=== PATIENT | male | born 1960 | race Caucasian/White ===

== ENCOUNTER → 2023-07-25 14:33 | Outpatient (REF) | payer MEDICARE, BC, SELFPAY ==
[2023-07-25 15:55] LABS: % Eosinophils 4.1 % (0-6); % Immature Granulocytes 0.2 % (0-0.5); % Lymphocytes 29.2 % (20.5-51.1); % Monocytes 8.8 % (1.7-9.3); % Neutrophils 56.7 % (42.2-75.2); Absolute Basophils 0.1 10^3/uL (0-0.2); Absolute Eosinophils 0.2 10^3/uL (0-0.7); Absolute Lymphocytes 1.4 10^3/uL (1.2-3.4); Absolute Monocytes 0.4 10^3/uL (0.1-0.6); Absolute Neutrophils 2.8 10^3/uL (1.4-6.5); Hematocrit 42.9 % (39.0-52.0); Hemoglobin 14.8 g/dL (13.0-18.0); Mean Corp Hgb Conc. 34.5 g/dL (33.0-37.0); Mean Corpuscular Hgb 33.1 pg (27.0-31.0); Mean Platelet Volume 9.9 fL (7.4-10.4); Nucleated Red Blood Cells % 0 % (-); Platelet Count 190 10^3/uL (130-400); Red Blood Cell Count 4.47 10^6/uL (4.70-6.10); Red Cell Dist. Width 12.1 % (11.5-14.5); White Blood Cell Count 4.9 10^3/uL (4.8-10.8)
[2023-07-25 16:13] LABS: Albumin 4.4 g/dl (3.5-5.0); Blood Urea Nitrogen 19 mg/dl (9-20); Calcium 9.6 mg/dl (8.4-10.2); Carbon Dioxide 25 mmol/L (22-30); Chloride 102 mmol/L (98-107); Glucose 194 mg/dl (70-99); Potassium 4.5 mmol/L (3.5-5.1); Sodium 137 mmol/L (135-145); eGFR > 60.00
== END ==
LOC: REG 14:33
PROVIDERS: ATTENDING PHYSICIAN Internal Medicine Cardiovascular Disease; FAMILY PHYSICIAN Family Medicine
DX: R07.89 Other chest pain (principal); Z95.5 Presence of coronary angioplasty implant and graft
CPT/HCPCS: 36415; 80069; 85025

== ENCOUNTER 2023-07-26 09:20 | Day surgery (SDC) | payer MEDICARE, BC, SELFPAY ==
[2023-07-26] VITALS (17 sets, daily range): BP systolic 123–145; BP diastolic 60–75; BMI 29.5
[2023-07-26 10:15] LABS: Glucose - Point of Care 181 mg/dl (70-99)
--- NOTE | 2023-07-26 11:41 | ITS.CL.CATH ---
Bi Tester - Catheterization
Cardiac Catheterization
Procedure Report:
CARDIAC CATHETERIZATION REPORT
Date of Procedure: 07/26/2023
Referring: Chad Jose M.D.
INDICATION: Known coronary artery disease, accelerating angina.
PROCEDURE:
1. Left heart catheterization.
2. Coronary angiography.
ACCESS:
6 [place] right radial artery.
CATHETERS:
1. 5 [place].
HEMODYNAMIC DATA
Weight (kg): 93.3
AO (s/d/x, mmHg): 126/69/89
LV (s/x mmHg): 133/20
LEFT VENTRICULOGRAPHY: Not performed.
CORONARY ANGIOGRAPHY
Dominance: Right.
Left Main: Normal size, bifurcating vessel. There is a 70% lesion in the ostium of the vessel with catheter dampening on insertion.
LAD: Normal size vessel giving rise to several small diagonals. Patent stents are visible in the proximal and mid vessel. There is a 90% lesion in the proximal LAD, immediately proximal to the stent. There is an 80% lesion in the apical
segment of the LAD.
Ramus: Congenitally absent.
Circumflex: Large size, nondominant vessel giving rise to 3 obtuse marginals before terminating as a substantial left posterolateral branch. There is an 80% lesion in the proximal margin of OM1. There is a 70% lesion in the proximal margin of
the LPL.
RCA: Normal size, dominant vessel that was somewhat difficult to engage with a [place] catheter. There is a 90% lesion in the mid vessel. There is a 90% lesion in the distal RCA, proximal to the takeoff of the RPDA.
INTERVENTION(S)
None.
Closure Device: Vascular band.
Radiation (mGy): 295.72
DAP (cm2.Gy): 43.1
Fluoroscopy time (minutes): 2.5
Sedation time (minutes): 16
CONCLUSIONS
1. Right dominant circulation with a 70% ostial left main coronary artery lesion, a 90% lesion in the proximal LAD, patent stents in the proximal and mid LAD, and 80% lesion in the proximal margin of OM1, a 70% lesion in the proximal margin of the
left posterolateral branch, and 90% lesions in the mid RCA and distal RCA, proximal to the takeoff of the RPDA.
2. Moderately elevated filling pressures (LVEDP = 20 mmHg at 93.3 kg).
3. Vru-zcewoim-gfaetckbc diabetes mellitus.
RECOMMENDATIONS:
1. Expectant management after cardiac catheterization via right radial approach.
2. Limited weight bearing on the right wrist for one week.
3. Discussion with surgery regarding expedited surgical revascularization given his diabetes, relatively young age and multivessel coronary artery disease.
4. Start metoprolol succinate 25 mg daily.
5. Start ezetimibe 10 mg daily.
6. Echocardiogram ordered and pending.
7. Nitroglycerin as needed.
Copy to: Chad Jose M.D.
Scar Boo DO, FACC, FACP
[2023-07-26] MEDS: NSS 1000 IV (11:56)
[2023-07-26] MEDS: TYLENOL 650 MG PO (12:58)
--- NOTE | 2023-07-26 15:05 | PTCARENOTE ---
Pt having ECHO done prior to d/c . blood work also drawn and sent to lab. Once pt d/ec he will then go for his carotid ultrasound. Family at bedside. all discharge instructions explained and understood.
[2023-07-26 15:13] LABS: INR 0.99; PT 12.9 Sec (11.4-14.6)
[2023-07-26 15:14] LABS: APTT 32.2 Sec (23.4-35.0)
[2023-07-27 09:41] LABS: Glycohemoglobin (HgbA1c) 9.5 % (4.0-5.6)
== END 2023-07-26 16:09 | disposition home or self-care (01) ==
LOC: CATH 09:20
PROVIDERS: Nurse Practitioner; ATTENDING PHYSICIAN Internal Medicine Cardiovascular Disease; FAMILY PHYSICIAN Family Medicine; OTHER PHYSICIAN Internal Medicine Cardiovascular Disease
DX: I25.119 Atherosclerotic heart disease of native coronary artery with unspecified angina pectoris (principal); Z95.5 Presence of coronary angioplasty implant and graft; E78.00 Pure hypercholesterolemia, unspecified; E11.42 Type 2 diabetes mellitus with diabetic polyneuropathy; Z79.82 Long term (current) use of aspirin; Z79.84 Long term (current) use of oral hypoglycemic drugs
CPT/HCPCS: 82962; 83036; 85610; 85730; 93306; 93458; 93880; C1894; Q9967

== ENCOUNTER 2023-08-01 10:52 | Inpatient (IN) | payer MEDICARE, BC, SELFPAY ==
[2023-08-01 07:31] VITALS: BMI 30.2
[2023-08-01 08:35] LABS: % Basophils 0.7 % (0-2); % Eosinophils 2.8 % (0-6); % Immature Granulocytes 0.3 % (0-0.5); % Lymphocytes 32.2 % (20.5-51.1); Absolute Basophils 0.1 10^3/uL (0-0.2); Absolute Eosinophils 0.2 10^3/uL (0-0.7); Absolute Lymphocytes 2.3 10^3/uL (1.2-3.4); Absolute Monocytes 0.4 10^3/uL (0.1-0.6); Absolute Neutrophils 4.2 10^3/uL (1.4-6.5); Hematocrit 43.8 % (39.0-52.0); Hemoglobin 14.9 g/dL (13.0-18.0); Mean Corpuscular Volume 94.2 fL (80.0-94.0); Mean Platelet Volume 9.9 fL (7.4-10.4); Nucleated Red Blood Cells % 0 % (-); Platelet Count 216 10^3/uL (130-400); Red Blood Cell Count 4.65 10^6/uL (4.70-6.10); White Blood Cell Count 7.2 10^3/uL (4.8-10.8)
[2023-08-01 08:46] LABS: APTT 26.3 Sec (23.4-35.0); INR 0.95; PT 12.7 Sec (11.4-14.6)
[2023-08-01 08:52] LABS: ALT (SGPT) 66 U/L (0-50); AST (SGOT) 49 U/L (17-59); Albumin 4.3 g/dl (3.5-5.0); Alkaline Phosphatase 65 U/L (38-126); Blood Urea Nitrogen 21 mg/dl (9-20); Calcium 9.5 mg/dl (8.4-10.2); Carbon Dioxide 27 mmol/L (22-30); Chloride 104 mmol/L (98-107); Direct Bilirubin 0.2 mg/dl (0.0-0.4); Estimated Creatinine Clearance 92 ml/min; Glucose 150 mg/dl (70-99); Potassium 4.6 mmol/L (3.5-5.1); Sodium 139 mmol/L (135-145); Total Bilirubin 0.7 mg/dl (0.2-1.3); Total Protein 6.7 g/dl (6.3-8.2); eGFR > 60.00
[2023-08-01 09:17] LABS: Urine Albumin Negative (Neg - Trace); Urine Bilirubin Negative (Negative); Urine Character Clear (Clear); Urine Color Yellow; Urine Glucose Negative (Negative); Urine Ketone Negative (Negative); Urine Leukocyte Negative (Negative); Urine Nitrite Negative (Negative); Urine Occult Blood Negative (Negative); Urine Urobilinogen Negative (Neg - 1+)
--- NOTE | 2023-08-01 10:59 | W.PN.UPDATE ---
Update Note
Progress Note Update
No significant changes to H&P from office visit. Patient was admitted from [facility] due to increasing severity of chest pain. Spoke with cardiology and will admit earlier and possibly expedite surgical date.
--- NOTE | 2023-08-01 11:16 | CM ---
spoke with pt in PAT's, we discssed preop CABG teaching including sternal and driving restrctions. kahlil smallwood, lives with his in a 2 story home with no steps to enter. he denies any dc planning needs or dme's. he has the cardiac educ book.
pt tells me that he had very bad chest pain last night , sub sternal and radiated down both arms, he stated the worst chest pain he had, his wanted him to go to [facility] but he did not want to. pt has SL-NTG i his pocket but said he has never
uses it before and did not use any last night.
texted Niki Licea, CT-HEATING EQUIPMENT INSTALLER and Mary Blackwood, HEATING EQUIPMENT INSTALLER cardiol. Dr Cherry in to see pt and told pt he wants him admitted now. Dr Parr was aware and i was informed that pts GABG will be moved up to tomorrow AM. pts called and informed. pt admitted
to IVU as DA.
[2023-08-01 11:22] VITALS: BMI 29.6
--- NOTE | 2023-08-01 11:36 | CON.CAR ---
Consultation
Consultation Request
Date/Time Consultation Requested: August 01, 2023 10 AM
Date/Time Consultation Performed: August 01, 2023 10 AM
Requesting Provider: Cardiac surgery
Performing Provider: Chapincito Cherry
Reason for Consultation: Coronary artery disease and chest pain
Medical History
-
Chief Complaint: chest pain
History of Present Illness:
63-year-old male with history of CAD status post LAD stenting in 2017, uncontrolled type 2 diabetes, neuropathy, C5-C6 cervical discectomy and fusion who had a recent heart catheterization with results listed below. He was seen in preop testing for
coronary artery bypass grafting surgery and he was describing increased frequency of symptoms with increased duration as well. He has been limiting his activity because of this. Additionally, he has developed what sounds like a cough in the last
week or so. All of this is concerning that he has having more unstable coronary artery disease. We discussed admission for potential surgery tomorrow. CT surgery will be seeing him and plan for tentatively for possible surgery tomorrow. He has
an intolerance to statin and it appears has tried 3 of them. Otherwise, he has no other symptoms of heart failure or arrhythmia.
CONCLUSIONS
1. Right dominant circulation with a 70% ostial left main coronary artery lesion, a 90% lesion in the proximal LAD, patent stents in the proximal and mid LAD, and 80% lesion in the proximal margin of OM1, a 70% lesion in the proximal margin of the
left posterolateral branch, and 90% lesions in the mid RCA and distal RCA, proximal to the takeoff of the RPDA.
2. Moderately elevated filling pressures (LVEDP = 20 mmHg at 93.3 kg).
3. Ifo-ipmnjjw-imxeqibvw diabetes mellitus.
Past Medical History
Past Medical History: Other (CAD status post LAD stenting in 2017, uncontrolled type 2 diabetes, neuropathy, C5-C6 cervical discectomy and fusion)
Past Surgical History: Other (C5-C6 cervical discectomy and fusion)
Social History
Tobacco: Non-Smoker
Alcohol: None
Drug: None
Personal:
Living: With Family
Family History
Family History: Reviewed & Not Pertinent
Allergies / Home Medications
Allergy/AdvReac Type Severity Reaction Status Date / Time
No Known Allergies Allergy Unverified 07/30/23 12:02
�Medication �Instructions �Recorded �Confirmed �Type
aspirin 81 mg tablet,delayed 81 mg PO DAILY 05/12/16 07/30/23 History
release
multivitamin 1 tab PO DAILY 07/26/23 07/30/23 History
nitroglycerin 0.4 mg sublingual 0.4 mg sublingual [id number] PRN 07/26/23 07/30/23 Rx
tablet chest pain #25 tabs
metformin 500 mg tablet 1,000 mg PO QPM 07/30/23 07/30/23 History
metoprolol succinate 25 mg 25 mg PO 1400 07/30/23 07/30/23 History
tablet,extended release 24 hr
Review of Systems
-
All other systems: Negative unless noted
Physical Exam
Vital Signs
Temp Resp Pulse Ox
97.9 F 18 95
08/01/23 11:21 08/01/23 11:21 08/01/23 11:21
Lab Results
08/01/23 08:05
Physical Exam
General: Well Developed and Well Nourished
HEENT: Normocephalic
Respiratory: Clear and Non Labored Respirations
Cardiac: Regular Rhythm and Other (soft systolic murmur )
GI: Soft
Musculoskeletal: No Clubbing and No Cyanosis
Skin: Warm and Dry
Neuro: AO x 3
Hematologic/Lymphatic: No Lymphadenopathy
Psych: Calm
Impression / Plan
-
63-year-old male with history of CAD status post LAD stenting in 2017, uncontrolled type 2 diabetes, neuropathy, C5-C6 cervical discectomy and fusion who had a recent heart catheterization showing significant coronary artery disease and is here for
CABG.
CAD
- continue aspirin and metoporlol
- statin intolerant, discuss pcsk9i vs Leqvio as outpt
- tentative plan for CABG tomorrow
Mild to moderate
- continue routine monitoring
DM2
- SGLT2i if able to afford after surgery
- hold metformin
Cath July 2023: CONCLUSIONS
1. Right dominant circulation with a 70% ostial left main coronary artery lesion, a 90% lesion in the proximal LAD, patent stents in the proximal and mid LAD, and 80% lesion in the proximal margin of OM1, a 70% lesion in the proximal margin of the
left posterolateral branch, and 90% lesions in the mid RCA and distal RCA, proximal to the takeoff of the RPDA.
2. Moderately elevated filling pressures (LVEDP = 20 mmHg at 93.3 kg).
3. Oiu-nywjcoz-nqjnkeekw diabetes mellitus.
Echo July 2023: CONCLUSIONS
Normal LV size and function with no regional wall motion abnormalities.
LVEF is 60 to 65% by Gomez's method of discs.
Mild concentric LVH.
Normal diastolic function.
Normal right ventricular size and function.
Mild to moderate aortic stenosis.
Right heart pressures could not be determined.
Compared to prior from June 12, 2019, aortic valve stenosis is now mild to
moderate from mild.
Data Reviewed
-
EKG: Tracing Personally Visualized and interpreted (sr)
Medical Tests (Nuc Med, Echo etc): Report Reviewed by me (echo and cath)
Labs: Labs Reviewed by me
[2023-08-01] MEDS: HEPARIN 25000 UNITS/250 ML IV (11:50)
[2023-08-01 12:02] LABS: Hematocrit 40.3 % (39.0-52.0); Mean Corp Hgb Conc. 34.7 g/dL (33.0-37.0); Mean Corpuscular Hgb 32.6 pg (27.0-31.0); Mean Corpuscular Volume 93.7 fL (80.0-94.0); Mean Platelet Volume 9.8 fL (7.4-10.4); Platelet Count 204 10^3/uL (130-400); Red Cell Dist. Width 11.9 % (11.5-14.5); White Blood Cell Count 7.6 10^3/uL (4.8-10.8)
[2023-08-01 12:03] VITALS: BP 121/72
[2023-08-01 12:04] LABS: APTT 26.4 Sec (23.4-35.0)
[2023-08-01 15:05] LABS: Troponin I < 0.012 ng/ml
[2023-08-01 15:28] VITALS: BP 112/70
--- NOTE | 2023-08-01 15:44 | PTCARENOTE ---
Pt admitted into room 2245. Admission history obtained. Pt placed on Heparin drip at 1000 units/hr. Pt NSR on monitor, RA, lungs clear. See worklist for VS/I and O and assessments.
[2023-08-01 17:13] LABS: Glucose - Point of Care 111 mg/dl (70-99)
[2023-08-01 18:46] LABS: APTT 34.3 Sec (23.4-35.0)
[2023-08-01 19:32] VITALS: BP 119/77
[2023-08-01] MEDS: COLACE 100 MG PO (19:41)
[2023-08-01] MEDS: SENOKOT 8.59999999999999964 MG PO (19:41)
[2023-08-01 21:27] LABS: Glucose - Point of Care 139 mg/dl (70-99)
[2023-08-01 22:18] VITALS: BP 137/68
[2023-08-02 01:19] LABS: APTT 43.4 Sec (23.4-35.0)
[2023-08-02 05:08] VITALS: BP 134/75
[2023-08-02 05:09] VITALS: BP 131/79
[2023-08-02 05:12] VITALS: BMI 28.8
[2023-08-02] MEDS: PROTONIX 40 MG PO (05:45)
[2023-08-02] MEDS: BACTROBAN 2% OINTMENT 1 APPLIC NASAL ×2 (05:46→20:38)
[2023-08-02] MEDS: LOPRESSOR 25 MG PO (05:46)
[2023-08-02] MEDS: MAGNESIUM OXIDE 500 MG PO (05:46)
[2023-08-02 05:54] LABS: Glucose - Point of Care 160 mg/dl (70-99)
--- NOTE | 2023-08-02 05:56 | PTCARENOTE ---
Chlorhexidine bath done last evening after clip done. Chlorhexidine bath and CHG wipes done again at 0500. 0600 meds given. Accucheck done. at bedside. Heparin to be left on going to OR per cardiac PA.
[2023-08-02 07:15] LABS: ACT+ - POC 96 Seconds (82-134)
[2023-08-02 07:17] LABS: B.E. - POC -1.7 mmol/L; Glucose - POC 168 mg/dl (65-99); HCO3 - POC 25 mmol/L (21-29); Hematocrit - POC 41 % PCV (42-52); Hemodilution- POC Yes; Hemoglobin Calculated - POC 13.9; O2 Saturation %Calculated-POC 99.9 5 (92-96); PCO2 - POC 48 mmHg (35-45); PO2 - POC 365 mmHg (80-100); POC Comment PRE; Potassium - POC 4.3 mmol/L (3.6-5.0); Sodium - POC 142 mmol/L (135-145); pH - POC 7.32 (7.35-7.45)
[2023-08-02 08:01] LABS: Urine Albumin Negative (Neg - Trace); Urine Bilirubin Negative (Negative); Urine Character Clear (Clear); Urine Color Yellow; Urine Glucose Negative (Negative); Urine Ketone Negative (Negative); Urine Leukocyte Negative (Negative); Urine Nitrite Negative (Negative); Urine Occult Blood Negative (Negative); Urine Specific Gravity 1.015 (<1.030); Urine Urobilinogen Negative (Neg - 1+)
--- NOTE | 2023-08-02 09:19 | CM ---
pt in OR today, cm to follow.
[2023-08-02 10:09] LABS: ACT+ - POC 615 Seconds (82-134)
--- NOTE | 2023-08-02 10:21 | W.PN.CD ---
Today's Communication / Plan
-
CABG + AVR today.
Impression / Plan
-
Impression/Plan: 63-year-old male with history of CAD status post LAD stenting in 2017, uncontrolled type 2 diabetes, neuropathy, C5-C6 cervical discectomy and fusion who had a recent heart catheterization showing significant coronary artery
disease and is here for CABG.
#CAD
-Chronic, progressive. The patient reported worsening symptoms at [facility] yesterday, prompting admission for expedited CABG.
-CABG today.
-Anticipate routine post operative care.
#Moderate
-Chronic.
-Discussed with Dr. Parr. This will likely be replaced during CABG.
#DM2
-Chronic, stable.
-Start SGLT2i if affordable after surgery.
-Hold metformin.
#HLD/Statin intolerance
-Chronic, stable.
-Total cholesterol = 181, LDL = 101, HDL = 29, Triglycerides = 259.
-PCSK9i/Inclisiran as an outpatient.
-Patient may benefit from icosapent ethyl 2g BID as an outpatient.
-Goal LDL < 55, Triglycerides < 150.
Subjective/Interval History:
Admitted from [facility] yesterday after admitting to unstable, accelerating symptoms.
In surgery today.
DATA:
Cath 07/26/2023:
CONCLUSIONS
1. Right dominant circulation with a 70% ostial left main coronary artery lesion, a 90% lesion in the proximal LAD, patent stents in the proximal and mid LAD, and 80% lesion in the proximal margin of OM1, a 70% lesion in the proximal margin of the
left posterolateral branch, and 90% lesions in the mid RCA and distal RCA, proximal to the takeoff of the RPDA.
2. Moderately elevated filling pressures (LVEDP = 20 mmHg at 93.3 kg).
3. Xtb-hytrntq-uifhweayf diabetes mellitus.
Echo 07/26/2023:
CONCLUSIONS
Normal LV size and function with no regional wall motion abnormalities.
LVEF is 60 to 65% by Gomez's method of discs.
Mild concentric LVH.
Normal diastolic function.
Normal right ventricular size and function.
Mild to moderate aortic stenosis.
Right heart pressures could not be determined.
Compared to prior from June 12, 2019, aortic valve stenosis is now mild to
moderate from mild.
Physical Exam
Vital Signs/Labs
Vital Signs
Temp Pulse Resp BP Pulse Ox
36.9 C 64 16 131/79 95
08/02/23 05:13 08/02/23 05:46 08/02/23 05:13 08/02/23 05:46 08/02/23 05:13
07/31/23 08/01/23 08/02/23
11:59 11:59 11:59
Actual Weight 91 kg 91 kg
08/01/23 11:40
08/01/23 08:05
PT 12.7 Sec (11.4-14.6) 08/01/23 08:05
INR 0.95 08/01/23 08:05
APTT 43.4 Sec (23.4-35.0) H 08/02/23 00:44
LAB Results
08/01/23
14:30
Troponin I < 0.012
Physical Exam
Exam deferred. Dr. Parr is actively operating on the patient.
Data Reviewed
-
Date of Service: August 02, 2023
Medical Decision Making: Reviewed Test Results, Independent Historian Assessment, Test Interpretation and Review of Case with other Provider
EKG: Tracing Personally Visualized and interpreted and Report Reviewed by me
Echo: Tracing Personally Visualized and interpreted and Report Reviewed by me
X-Ray/CT/US/MRI/NUC/PET: Image Personally Visualized and interpreted, Report Reviewed by me and Discussed with Physician
Medical Tests (PFT, Pathology etc): Image Personally Visualized and interpreted, Report Reviewed by me and Discussed with Physician
Labs: Labs Reviewed by me
Old Records: Reviewed
[2023-08-02 10:46] LABS: B.E. - POC 2.7 mmol/L; Glucose - POC 206 mg/dl (65-99); HCO3 - POC 28 mmol/L (21-29); Hematocrit - POC 31 % PCV (42-52); Hemodilution- POC Yes; Hemoglobin Calculated - POC 10.4; Ionized Calcium - POC 1.04 mmol/L (1.12-1.27); O2 Saturation %Calculated-POC 99.9 5 (92-96); PCO2 - POC 45 mmHg (35-45); PO2 - POC 295 mmHg (80-100); POC Comment CPB; Potassium - POC 5.3 mmol/L (3.6-5.0); Sodium - POC 137 mmol/L (135-145)
[2023-08-02 10:53] LABS: ACT+ - POC 806 Seconds (82-134)
[2023-08-02 11:13] LABS: B.E. - POC 1.3 mmol/L; Glucose - POC 183 mg/dl (65-99); HCO3 - POC 25 mmol/L (21-29); Hematocrit - POC 33 % PCV (42-52); Hemodilution- POC Yes; Hemoglobin Calculated - POC 11.3; Ionized Calcium - POC 1.04 mmol/L (1.12-1.27); O2 Saturation %Calculated-POC 99.8 5 (92-96); PCO2 - POC 36 mmHg (35-45); PO2 - POC 215 mmHg (80-100); POC Comment CPB; Potassium - POC 4.1 mmol/L (3.6-5.0); Sodium - POC 140 mmol/L (135-145); pH - POC 7.45 (7.35-7.45)
[2023-08-02 11:20] LABS: ACT+ - POC 685 Seconds (82-134)
[2023-08-02 11:41] LABS: Glucose - POC 134 mg/dl (65-99); HCO3 - POC 25 mmol/L (21-29); Hematocrit - POC 33 % PCV (42-52); Hemodilution- POC Yes; Hemoglobin Calculated - POC 11.3; O2 Saturation %Calculated-POC 99.6 5 (92-96); PCO2 - POC 38 mmHg (35-45); PO2 - POC 176 mmHg (80-100); POC Comment CPB; Potassium - POC 3.7 mmol/L (3.6-5.0); Sodium - POC 142 mmol/L (135-145); pH - POC 7.43 (7.35-7.45)
[2023-08-02 11:45] LABS: ACT+ - POC 596 Seconds (82-134)
[2023-08-02 12:16] LABS: B.E. - POC 1.4 mmol/L; Glucose - POC 115 mg/dl (65-99); HCO3 - POC 26 mmol/L (21-29); Hematocrit - POC 35 % PCV (42-52); Hemodilution- POC Yes; Ionized Calcium - POC 1.06 mmol/L (1.12-1.27); PCO2 - POC 41 mmHg (35-45); PO2 - POC 361 mmHg (80-100); POC Comment CPB; Potassium - POC 3.9 mmol/L (3.6-5.0); Sodium - POC 141 mmol/L (135-145); pH - POC 7.41 (7.35-7.45)
[2023-08-02 12:23] LABS: ACT+ - POC 691 Seconds (82-134)
[2023-08-02 12:53] LABS: B.E. - POC -0.3 mmol/L; Glucose - POC 156 mg/dl (65-99); HCO3 - POC 24 mmol/L (21-29); Hematocrit - POC 35 % PCV (42-52); Hemodilution- POC Yes; Hemoglobin Calculated - POC 11.8; Ionized Calcium - POC 1.03 mmol/L (1.12-1.27); O2 Saturation %Calculated-POC 99.9 5 (92-96); PCO2 - POC 39 mmHg (35-45); PO2 - POC 281 mmHg (80-100); POC Comment CPB; Potassium - POC 3.9 mmol/L (3.6-5.0); Sodium - POC 141 mmol/L (135-145); pH - POC 7.41 (7.35-7.45)
[2023-08-02 12:55] LABS: ACT+ - POC 631 Seconds (82-134)
[2023-08-02 13:23] LABS: ACT+ - POC 595 Seconds (82-134)
[2023-08-02 13:24] LABS: B.E. - POC -0.7 mmol/L; Glucose - POC 178 mg/dl (65-99); HCO3 - POC 25 mmol/L (21-29); Hematocrit - POC 34 % PCV (42-52); Hemodilution- POC Yes; Hemoglobin Calculated - POC 11.5; Ionized Calcium - POC 1.08 mmol/L (1.12-1.27); PCO2 - POC 46 mmHg (35-45); PO2 - POC 141 mmHg (80-100); POC Comment REWARM; Potassium - POC 3.4 mmol/L (3.6-5.0); Sodium - POC 142 mmol/L (135-145); pH - POC 7.35 (7.35-7.45)
[2023-08-02 14:09] LABS: ACT+ - POC 107 Seconds (82-134)
[2023-08-02 14:13] LABS: B.E. - POC -2.3 mmol/L; Glucose - POC 118 mg/dl (65-99); HCO3 - POC 24 mmol/L (21-29); Hematocrit - POC 30 % PCV (42-52); Hemodilution- POC Yes; Hemoglobin Calculated - POC 10.2; Ionized Calcium - POC 1.25 mmol/L (1.12-1.27); O2 Saturation %Calculated-POC 99.9 5 (92-96); PCO2 - POC 45 mmHg (35-45); PO2 - POC 297 mmHg (80-100); POC Comment POST; Potassium - POC 3.6 mmol/L (3.6-5.0); Sodium - POC 144 mmol/L (135-145); pH - POC 7.33 (7.35-7.45)
--- NOTE | 2023-08-02 14:29 | W.CVOR.SURPR ---
CVOR Surgeon Immed Pre Op
-
I have examined this patient prior to performance of the scheduled procedure.
The patient's condition is unchanged from the time of the dictated/written History and
Physical and the patient is able to undergo the scheduled procedure.
--- NOTE | 2023-08-02 14:29 | W.IMMPOSTOP ---
Addendum entered and electronically signed by Naveen Parr MD 08/02/23 15:58:
[id number]
Original Note:
Surgical Immed Post Op Note
-
CARDIAC SURGERY OPERATIVE NOTE:
Preoperative Dx:
Unstable angina w/ MVCAD
Moderate aortic stenosis
Mild aortic insufficiency
Postoperative Dx:
Same
Procedures:
1) Median sternotomy
2) Takedown of KELLEN (narrow pedicle)
3) Endoscopic harvest/prep of L RA
4) Endoscopic harvest/prep of RLE GSV
5) CABG x 4 (KELLEN to LAD, L RA to OM1, GSV to RPDA, GSV to LPLB)
6) AVR (#25 Inspiris RESILIA)
Surgeon:
Naveen Parr M.D.
Assistants:
Miguel Mcelroy P.A.-C.; endoscopic harvest/prep of RLE GSV; executive chef assistant throughout; closure
Marjorie Taylor P.A.-C.; endoscopic harvest/prep of L RA; closure
Anesthesia:
Ankit Napoles M.D. and Oksana PalenciaN.Ethan
Perfusion:
Margot Bennett C.C.P. and Jayla Auguste C.C.P.; XC: 177, CPB: 204
Findings:
KELLEN was healthy conduit w/ brisk blood flow; ELD 2.5mm
L RA was healthy conduit w/ ELD 2.5mm
GSV was healthy conduit w/ ELD 3.5mm
LAD was visible on the epicardial surface, scattered calcifications/palpable prior stents; ELD 2.75mm
OM1 was visible on the epicardial surface, slightly thin walled, ELD 1.75mm
RPDA was visible on the epicardial surface, normal jesus, ELD 2.50mm
LPLB was visible on epicardial surface, normal jesus, ELD 2.50mm
RA-to-OM1 and GSV-to-LPLB directly anastomosed to aorta
GSV-to-RPDA w/ [id number]-[id number] anastomosis to graft to LPLB
Trileaflet AV w/ asymmetric leaflets. There were moderate calcifications on the RCC and LCC. The NCC had scant calcifications, but was the smallest of the valve leaflets. There was only minor annular extension of the calcium.
#25 Inspiris Resilia valve placed w/ 16 interrupted, pledgetted valve sutures & CorKnot device
Very good flow in all grafts on intraoperative transit-time U/S assessment
Post-WILL: Normal LVEF w/o RWMA, well-seated AVR w/o PVL/AI, mean gradient 9mmHg
Implants:
[employer] Inspiris RESILIA AVR #25mm; SN [id number]
Epicardial V-wires x 2
CT x 4 (B/L pleural, inferior mediastinal, superior mediastinal)
Sternal wires x 9
Complications:
None
Condition:
76 sinus, 96/57, 39/27, CVP 20, CO/CI: 4.4/2.1, 99%
GTTS: levophed 2, nicardipine 2.5, precedex 0.6
Stable/guarded to CVICU
--- NOTE | 2023-08-02 14:39 | PN.DE.MGMTRT ---
Insulin Management
- -
08/02/2023 Diabetes Management Consult
Patient admitted 07/31 increasing chest pain in OR today for CABG. PMH CAD, neuropathy, type 2 diabetes. A1C on 07/25 9.5%, cr .9, eGFR >60.
Patient is in OR at this time. Will follow glycemic protocol insulin infusion post op x 2 days.
Recommend transition to 1000 mg metformin BID with Jardiance or Farxiga.
Diabetes History
- -
Type of Diabetes: 2
Pre-Admission Diabetes Regimen
Insulin Pump Settings
IP Diabetes Regimen
08/01/23 08/01/23 08/02/23
17:11 21:26 05:53
POC Glucose 111 H 139 H 160 H
Meal type: Dinner
Amount consumed: 100%
Patient Education
--- NOTE | 2023-08-02 15:01 | W.PN.UPDATE ---
Update Note
Progress Note Update
63-year-old male developed chest discomfort during preadmission testing and was directly admitted to the hospital and surgery expedited for 08/02/2023.
IV fluids: 1100
Crystalloid:�
U.O.:� 450
Blood:� none
Wires:�
Drips: Cardene @ 2.5
Pressors: Levophed @ 2
Sedatives:� Precedex @ 0.6
�
NEURO: sedated on Precedex, pupils +2mm B/L
RESP: #8OT @23cm> 550/60%/01/22. Lungs clear B/L. 2 mediastinal (30cc on arrival) and R/L pleural (20cc on arrival) chest tubes to -20cm suction. Sanguineous drainage
CV: RRR +S1, S2, no S3, no�rub, no murmur. Dermabond to median sternotomy. RIJ w/[place] locked @ 45cm. PA XX; CVP XX; C.O 4.2/CI 2.1
ABD: round, soft, no BS
EXT: no edema, +2/4 DP pulses B/L, no femoral bruit, XXLE NAVNEET wrap intact; XX radial A-line intact
: Sheldon with clear yellow urine
�
A/P: POD #0 s/p AVR #25 Inspiris RESILIA; CABG x 4 (KELLEN to LAD, L RA to OM1, GSV to LPLB, GSV to RPDA-Y graft from SVG to LPLB)
WILL: EF�70%
- wean and extubate
- will need instruction regarding antibiotic prophylaxis for dental and invasive procedures
# CAD
- will need ASA/Plavix, beta-austin
- intolerant to statin>Zetia 10mg daily
- Ca+ austin for radial patency
�
# acute surgical blood loss anemia-expected
- trend CBC
�
# T2DM (A1C 9.5)
- insulin infusion x 48h
- diabetes management consult
- on MFM 1000mg daily @ home
�
[2023-08-02 15:08] LABS: Glucose - Point of Care 131 mg/dl (70-99)
--- NOTE | 2023-08-02 15:09 | CON.INTV ---
Consultation
Consultation Request
Date/Time Consultation Requested: 08/02/2023
Date/Time Consultation Performed: 08/02/2023
Requesting Provider: Dr. Parr
Performing Provider: Dr. Anand Randle
Reason for Consultation: Status post coronary artery bypass and AVR.
Medical History
-
History of Present Illness:
63-year-old man with past medical history significant for type 2 diabetes with neuropathy, coronary Tory disease, colon polyps who is here after being admitted for coronary artery bypass. Patient has multivessel coronary artery disease with prior
stents. Symptomatic despite medical management. LVEF was normal.
It was also discovered to have severe aortic valve stenosis.
He underwent coronary artery bypass and aortic valve replacement on 08/02/[address] Parr.
Currently in the critical care unit, intubated, sedated.
Records reviewed
Past Medical History
Past Medical History: Other (See assessment and plan section)
Social History
Tobacco: Non-smoker
Alcohol: None
Drug: None
Living: With Family
Employment: Retired
Family History
Family History: Reviewed & Not Pertinent
Allergies / Home Medications
Allergies
Allergy/AdvReac Type Severity Reaction Status Date / Time
No Known Allergies Allergy Verified 08/01/23 12:24
Home Medications
�Medication �Instructions �Recorded �Confirmed �Last Taken �Type
aspirin 81 mg tablet,delayed 81 mg PO DAILY Blood Clot 05/12/16 08/01/23 07/31/23 08:00 History
release Prevention/Tx
multivitamin 1 tab PO DAILY Supplement 07/26/23 08/01/23 07/31/23 08:00 History
nitroglycerin 0.4 mg sublingual 0.4 mg sublingual [id number] PRN 07/26/23 08/01/23 Unknown Rx
tablet chest pain #25 tabs
metformin 500 mg tablet 1,000 mg PO QPM Diabetes 07/30/23 08/01/23 07/31/23 20:00 History
metoprolol succinate 25 mg 25 mg PO 1400 CAD 07/30/23 08/01/23 07/31/23 12:00 History
tablet,extended release 24 hr
Review of Systems
-
Unable to Obtain full review of systems at this time due to: Patient Intubation
Vitals / Labs / Diagnostic Testing
Vital Signs
Temp Pulse Resp BP Pulse Ox
98.4 F 83 12 131/79 98
08/02/23 05:13 08/02/23 14:59 08/02/23 14:59 08/02/23 05:46 08/02/23 14:59
Laboratory Results
08/01/23 08/02/23
18:26 00:44
APTT 34.3 43.4 H
Microbiology
08/01/23 08:05 Nose MRSA Screen - Final
No Methicillin Resistant Staphylococcus aureus isolated.
Diagnostic Testing:
Physical Exam
-
HEENT: Normocephalic
Cardiovascular: S1/S2
Respiratory: Clear, Non-Labored Respirations and Other (Chest tube in place: No air leak or excessive drainage.)
GI: Soft and Non Distended
Neurology: Other (Sedated on mechanical ventilation.)
Skin: Warm
General: Comfortable
Assessment
-
Status post coronary bypass and aortic valve replacement 08/02/2023-Dr. Parr.
Postoperative mechanical ventilation
Postoperative anemia
Conditions present prior admission:
Coronary Tory disease status post prior stents
Type 2 diabetes with neuropathy
Assessment and plan:
He is doing well postop-currently on mechanical ventilation and appears comfortable.
ABG reviewed: Adequate oxygenation on ventilation.
Continue SIMV mode with no change
Spontaneous breathing trial per protocol once sedation wears off.
Anemia noted-no evidence of acute bleeding
Follow H&H serially
Hemodynamics -acceptable on low-dose Levophed.
Also on Cardene drip
PA catheter in place will follow hemodynamics and wean down vasoactive drugs as able.
Follow renal function and urinary output.
Chest tube with no excessive drainage-no air leak.
Chest x-ray reviewed: With no pneumothorax or fluid collections.
Remain nothing by mouth
Head of the bed elevation
Glycemic control per protocol
DVT prophylaxis when safe from the surgical perspective.
Critical care statement: A total of 32 minutes of critical care time was provided for this patient today. This includes management of unstable vital signs, evaluation of the patient at bedside, reviewing the patient's pertinent medical records
including ventilator settings, arterial blood gases, radiographs, microbiology, laboratory evaluations and discussion with primary team, critical care nursing, and respiratory therapy.
[2023-08-02 15:15] LABS: B.E. -0.7 mmol/L; HCO3 24.9 mmol/L (21-28); Ionized Calcium 1.24 mMOL/L (1.15-1.33); PCO2 44 mmHg (35-48); PO2 121 mmHg (83-108); Potassium 4.5 mMOL/L (3.5-5.1); Sodium 137 mMOL/L (136-145); pH 7.36 (7.35-7.45)
[2023-08-02 15:16] LABS: Hematocrit 31.8 % (39.0-52.0); Hemoglobin 11.4 g/dL (13.0-18.0); Platelet Count 145 10^3/uL (130-400)
[2023-08-02 15:18] LABS: Mixed Venous O2 Saturation 77.2 %
[2023-08-02 15:26] LABS: PT 16.9 Sec (11.4-14.6)
[2023-08-02 15:27] LABS: APTT 25.9 Sec (23.4-35.0)
[2023-08-02] MEDS: ANCEF 10 IV ×2 (15:27)
[2023-08-02] MEDS: NEURONTIN PO ×2 (15:28→16:13)
[2023-08-02] MEDS: NSS 500 IV (15:28)
[2023-08-02] MEDS: NOVOLOG FLEXPEN SC ×2 (15:28→17:06)
[2023-08-02 15:58] LABS: Glucose - Point of Care 168 mg/dl (70-99)
[2023-08-02 16:10] LABS: Blood Urea Nitrogen 19 mg/dl (9-20); Estimated Creatinine Clearance 76 ml/min; Glucose 165 mg/dl (70-99); Magnesium 3.2 mg/dl (1.6-2.3)
[2023-08-02] MEDS: TYLENOL PO ×2 (16:13→21:48)
[2023-08-02] MEDS: PACERONE PO (16:13)
[2023-08-02] MEDS: SENOKOT PO (16:14)
[2023-08-02] MEDS: COLACE PO (16:14)
--- NOTE | 2023-08-02 16:17 | CM ---
priced meds with [facility]-
jardiance- first month is $513 (this includes his remaining $545 deductible)- when the deductible is paid down his cost is $33/month
Farxiga- first month is $489 (this includes his $545 remaining deductible)- when the deductible is paid down his copay is $33/month
pt could use a free 30 day coupon.
--- NOTE | 2023-08-02 16:24 | PTCARENOTE ---
Rec'd pt from CVOR mechanically ventilated and sedated. Pt with RT IJ swan and RT radial arterial line. Pt on IV precedex at 0.5 mcg/kg/hr, IV Levo at 2mg/hr and IV cardene at 2.5 mg/hr. Labs sent. EKG done and CXR done. Levo weaned to off. Pt
resting comfortably. See worklist for VS/I and O and assessments.
--- NOTE | 2023-08-02 16:43 | PTCARENOTE ---
Pt stimulated awake, PHILLIP to command. Pt placed on CPAP 5 PS 5 .40% at 1635. TV 300-400. Pulse ox 96%. RR 18-20. See worklist for VS/I and O and assessments.
[2023-08-02 17:04] LABS: B.E. -1.9 mmol/L; HCO3 25.4 mmol/L (21-28); O2 Saturation % 96.7 % (94-98); PCO2 54 mmHg (35-48); PO2 78 mmHg (83-108); pH 7.28 (7.35-7.45)
[2023-08-02 17:08] LABS: Glucose - Point of Care 247 mg/dl (70-99)
[2023-08-02] MEDS: OFIRMEV 100 IV (17:27)
--- NOTE | 2023-08-02 17:31 | PTCARENOTE ---
Pt placed back of vent to rest. Pt very sleepy, will attempt CPAP again when patient more awake.
[2023-08-02 18:08] LABS: Glucose - Point of Care 210 mg/dl (70-99)
--- NOTE | 2023-08-02 18:23 | PTCARENOTE ---
Pt bathed with CHG wipes, turned side to side, tolerated well. Pt remains very sleepy, but arousable.
[2023-08-02 18:45] LABS: Glucose - Point of Care 205 mg/dl (70-99)
[2023-08-02 18:52] LABS: Hematocrit 31.6 % (39.0-52.0); Hemoglobin 11.1 g/dL (13.0-18.0); Platelet Count 176 10^3/uL (130-400)
[2023-08-02] MEDS: ALBUMIN 5% 250 IV (19:07)
[2023-08-02] MEDS: CARDENE 200 IV (19:10)
[2023-08-02] MEDS: SENOKOT-S PO (19:14)
--- NOTE | 2023-08-02 19:30 | PTCARENOTE ---
pt received from previous RN, intubated, able to open eyes to voice, PHILLIP, nods appropriately. SR w/ occasional PVCs on the monitor, HR 70-80s. V-wire in place, pacer box off. SBP 80-100s, MAPs >65. Levophed gtt running as ordered. PAP 30s/20s. CVP
~22. CI >2. palpable pulses, no edema. pt mechanically ventilated, ETT #8.0, 23cm@lip. pt placed on CPAP trial @1919, 5/5 40%, tolerating well. lungs clear anteriorly. CTx4, no air leak or crepitus noted. pt abdomen s/n, pt denies n/v. hypoactive
BS. Sheldon in place, clear yellow urine. sternal Aquagel intact. chest tube dressing c/d/i. LUE NAVNEET bandage in place, Cardene gtt running as ordered. R groin puncture intact, RLE NAVNEET bandage in place. RIJ cordis/swan maintained. R radial [place]
flushed, zeroed and calibrated. PIV. insulin gtt running as ordered. see worklist for VS, I&O, and assessment.
[2023-08-02 19:33] VITALS: BP 102/61
[2023-08-02 19:51] LABS: Glucose - Point of Care 189 mg/dl (70-99)
[2023-08-02 19:56] LABS: HCO3 24.3 mmol/L (21-28); Ionized Calcium 1.13 mMOL/L (1.15-1.33); O2 Saturation % 98.9 % (94-98); PCO2 42 mmHg (35-48); PO2 95 mmHg (83-108); Potassium 4.8 mMOL/L (3.5-5.1); pH 7.37 (7.35-7.45)
--- NOTE | 2023-08-02 20:00 | RESPNOTE ---
PT was extuabted at this time, following a weaning trial with cpap +5, PS 5 and an acceptable ABG result. PT was deep suctioned prior to, and orally succtioned afterward for a scant amt of clear secretions. PT was placed on a 6 L nasal cannula
post-extuabtion and vitals were stable. HR-94/ SPO2-98%/RR-14. I/S was done with the PT x 5 times with a best preformed at 1,100 mls. Will continue to monitor resp status.
--- NOTE | 2023-08-02 20:07 | PTCARENOTE ---
ABG sent, PA aware of results. pt extubated @1999 to 6LNC, oriented x4. IS 1000ml.
[2023-08-02 20:12] VITALS: BP 104/65
[2023-08-02] MEDS: ANCEF 5 IV (20:38)
[2023-08-02] MEDS: TORADOL 15 MG IV (20:38)
[2023-08-02] MEDS: CALCIUM CHLORIDE 10% SYRINGE 50 MG IV (20:43)
[2023-08-02] MEDS: CALCIUM CHLORIDE 10% SYRINGE 50 ML IV (20:43)
[2023-08-02] MEDS: LOW STRENGTH ASPIRIN 81 MG PO (20:47)
[2023-08-02 21:06] LABS: Glucose - Point of Care 150 mg/dl (70-99)
[2023-08-02 21:53] VITALS: BP 111/64
[2023-08-02 21:55] LABS: Glucose - Point of Care 137 mg/dl (70-99)
[2023-08-02] MEDS: NEURONTIN 100 MG PO (22:00)
[2023-08-02] MEDS: PACERONE 200 MG PO (22:00)
[2023-08-02] MEDS: ZETIA 10 MG PO (22:00)
[2023-08-02] MEDS: LEVOPHED 250 IV (22:01)
[2023-08-02 23:10] LABS: Glucose - Point of Care 113 mg/dl (70-99)
[2023-08-02] MEDS: ROXICODONE 5 MG PO (23:11)
[2023-08-02 23:59] LABS: Glucose - Point of Care 122 mg/dl (70-99)
[2023-08-03] VITALS (20 sets, daily range): BP systolic 97–123; BP diastolic 53–83; PULSE 76; O2SAT 94; BMI 29.5
--- NOTE | 2023-08-03 | PTCARENOTE ---
pt VSS, no changes in assessment. resting between care. cough and deep breathing encouraged.
[2023-08-03 01:05] LABS: Glucose - Point of Care 117 mg/dl (70-99)
[2023-08-03] MEDS: FLEXERIL 5 MG PO ×3 (01:05→20:24)
[2023-08-03] MEDS: DILAUDID 0.25 MG IV (02:16)
[2023-08-03 03:15] LABS: Glucose - Point of Care 116 mg/dl (70-99)
[2023-08-03 03:31] LABS: Hematocrit 27.2 % (39.0-52.0); Hemoglobin 9.6 g/dL (13.0-18.0); Mean Corp Hgb Conc. 35.3 g/dL (33.0-37.0); Mean Corpuscular Hgb 32.2 pg (27.0-31.0); Mean Corpuscular Volume 91.3 fL (80.0-94.0); Platelet Count 138 10^3/uL (130-400); Red Blood Cell Count 2.98 10^6/uL (4.70-6.10); White Blood Cell Count 11.5 10^3/uL (4.8-10.8)
--- NOTE | 2023-08-03 04:00 | PTCARENOTE ---
pt VSS, no changes in assessment. pt lab work drawn, EKG completed. pt washed w/ CHG wipes, gown and linens changed. Gina appiah'd as ordered, terri c/d/i. ALPA peralta dc'd as ordered. tolerating ice chips, no c/o n/v.
[2023-08-03 04:13] LABS: Blood Urea Nitrogen 23 mg/dl (9-20); Calcium 9.2 mg/dl (8.4-10.2); Carbon Dioxide 26 mmol/L (22-30); Chloride 109 mmol/L (98-107); Estimated Creatinine Clearance 69 ml/min; Glucose 102 mg/dl (70-99); Magnesium 2.4 mg/dl (1.6-2.3); Potassium 4.9 mmol/L (3.5-5.1); Sodium 141 mmol/L (135-145); eGFR > 60.00
[2023-08-03] MEDS: ROXICODONE 5 MG PO ×3 (04:18→21:08)
[2023-08-03 05:08] LABS: Glucose - Point of Care 109 mg/dl (70-99)
--- NOTE | 2023-08-03 05:28 | W.PN.CT ---
Today's Communication / Plan
-
-pod #1
-no issues overnight, got slightly hypotensive and dizzy this am with getting out of bed - improved
-CI 2.98, CO 6.23, SVR 732. Drips: insulin, Cardene 2.5 (for radial graft)
-CT output: 2 meds 110/120, 2 pleur 140/180 in 12/24 hrs
-deline
-continue insulin
-transition off iv Cardene to po Norvasc for radial graft
-d/c Sheldon
-current meds (ASA, Plavix, Lopressor, Norvasc, Amio, Protonix, Zetia). Intolerant of statins
-encourage IS, OOB
Assessment / Plan
-
- Unstable angina w/ MVCAD / Moderate - s/p AVR (#25 Inspiris DWAIN); CABG x 4 (KELLEN to LAD, L RA to OM1, GSV to RPDA, GSV to LPLB) by Dr. Parr on 08/02/23, pod #1
- Post-WILL: Normal LVEF w/o RWMA, well-seated AVR w/o PVL/AI, mean gradient 9mmHg
- Hx CAD with stents x2 in 2017
- HTN/HLD
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
- Nonsmoker
- Statin intolerance
- Acute postop blood loss anemia
- Acute postop atelectasis
- Acute postop hypovolemia with subsequent hypervolemia
Discussed patient care with: Nursing and Care Team
Subjective
Procedure
- s/p AVR (#25 Inspiris RESILIA); CABG x 4 (KELLEN to LAD, L RA to OM1, GSV to RPDA, GSV to LPLB) by Dr. Parr on 08/02/23
-
Date of Service: August 03, 2023
Objective Data
-
Lab Results
08/02/23 18:40
PT 16.9 Sec (11.4-14.6) H 08/02/23 15:03
INR 1.40 08/02/23 15:03
APTT 25.9 Sec (23.4-35.0) 08/02/23 15:03
Vital Signs
Vital Signs
Temp Pulse Resp BP Pulse Ox
98.2 F 77 18 111/64 97
08/03/23 02:00 08/03/23 02:00 08/03/23 02:00 08/02/23 21:53 08/03/23 02:00
CT Intake/Output/Weight
08/02/23 08/02/23 08/03/23
06:59 18:59 06:59
Intake Total 220.0 / 986.4 766.4 / 986.4
Output Total 245 / 865 620 / 865
Balance -25.0 / 121.4 146.4 / 121.4
SaO2: 97
Physical Exam
-
General: Awake and AOx3
Cardiovascular: Regular rate & rhythm, No Murmurs and Rub
Respiratory: Decreased Breath Sounds
Sternum: Stable
Incision: Clean, Dry and Intact
Extremities: Other (trace edema b/l with 1+ DPs b/l)
Data Reviewed
-
Lab Results: Results Reviewed
Medications: Active Meds Reviewed
Chest X-Ray: Report Reviewed and Image Reviewed
ECG: Report Reviewed and Image Reviewed
[2023-08-03] MEDS: TYLENOL 1000 MG PO ×3 (05:37→21:08)
[2023-08-03] MEDS: TORADOL 15 MG IV (05:37)
[2023-08-03] MEDS: ANCEF 5 IV ×2 (05:38→13:47)
--- NOTE | 2023-08-03 06:12 | PTCARENOTE ---
pt OOB to chair x2 assist, PA aware of CT output. CXR completed. chest PT performed. +productive cough.
[2023-08-03 07:06] LABS: Glucose - Point of Care 137 mg/dl (70-99)
[2023-08-03] MEDS: NOVOLOG FLEXPEN 4 UNITS SC ×2 (08:12→17:14)
[2023-08-03 08:13] LABS: Glucose - Point of Care 119 mg/dl (70-99)
[2023-08-03] MEDS: SENOKOT-S 1 TABLET PO ×2 (08:15→20:24)
[2023-08-03] MEDS: LOPRESSOR 12.5 MG PO ×2 (08:15→20:24)
[2023-08-03] MEDS: PACERONE 200 MG PO ×3 (08:15→21:08)
[2023-08-03] MEDS: NEURONTIN 100 MG PO ×3 (08:15→21:08)
[2023-08-03] MEDS: PROTONIX 40 MG PO (08:15)
[2023-08-03] MEDS: MAGNESIUM OXIDE 500 MG PO ×2 (08:15→20:24)
[2023-08-03] MEDS: LOW STRENGTH ASPIRIN 81 MG PO (08:16)
[2023-08-03] MEDS: LIDOCAINE 4% PATCH 1 PATCH TOPICAL (08:16)
[2023-08-03] MEDS: PLAVIX 75 MG PO (08:16)
[2023-08-03] MEDS: BACTROBAN 2% OINTMENT 1 APPLIC NASAL ×2 (08:17→20:24)
[2023-08-03] MEDS: NORVASC 2.5 MG PO (08:31)
--- NOTE | 2023-08-03 09:04 | W.PN.ANS.POP ---
Anesthesia Post Operative
- Anesthesia Post Op Note
Vital Signs Stable-See Nursing Note: Yes
Airway Patent: Yes
Adequate Pain Control: Yes
Change in Mental Status: No
Current Postoperative Nausea & Vomiting: No
Anesthesia Complications: No
General Anesthetic Recall: No
Unplanned Admission: No
Post Op Hydration Adequate: Yes
[2023-08-03 10:27] LABS: Glucose - Point of Care 135 mg/dl (70-99)
--- NOTE | 2023-08-03 10:43 | W.PN.CD ---
Today's Communication / Plan
-
-Supportive care in the postop..
-Pain control
-Start aspirin/Plavix/metoprolol and Norvasc
Impression / Plan
-
Impression/Plan: 63-year-old male with history of CAD status post LAD stenting in 2017, uncontrolled type 2 diabetes, neuropathy, C5-C6 cervical discectomy and fusion who had a recent heart catheterization showing significant coronary artery
disease now status post CABG and AVR -08/02/[address] Parr�postop day #1
#CAD
-CABG x 4 (KELLEN to LAD, L RA to OM1, GSV to RPDA, GSV to LPLB) by Dr. Parr on 08/02/23, pod #1
-Plan to decline.
-Assess chest tubes.
-Beta-blockers and amlodipine with left radial artery harvesting.
-On aspirin and Plavix.
-Postop A-fib prophylaxis with amiodarone.
#Moderate
-s/p AVR (#25 Inspiris RESILIA) -08/02/2023
-Deline
#DM2
-Chronic, stable.
-Start SGLT2i if affordable after surgery.
-Hold metformin.
#HLD/Statin intolerance
-Chronic, stable.
-Total cholesterol = 181, LDL = 101, HDL = 29, Triglycerides = 259.
-PCSK9i/Inclisiran as an outpatient.
-Patient may benefit from icosapent ethyl 2g BID as an outpatient.
-Goal LDL < 55, Triglycerides < 150.
Subjective/Interval History:
Feeling much better today. Had significant pain in the morning that has resolved completely. No active complaints. Out of the bed to chair.
DATA:
Cath 07/26/2023:
CONCLUSIONS
1. Right dominant circulation with a 70% ostial left main coronary artery lesion, a 90% lesion in the proximal LAD, patent stents in the proximal and mid LAD, and 80% lesion in the proximal margin of OM1, a 70% lesion in the proximal margin of the
left posterolateral branch, and 90% lesions in the mid RCA and distal RCA, proximal to the takeoff of the RPDA.
2. Moderately elevated filling pressures (LVEDP = 20 mmHg at 93.3 kg).
3. Doy-naliaoh-evkwvvlhn diabetes mellitus.
Echo 07/26/2023:
CONCLUSIONS
Normal LV size and function with no regional wall motion abnormalities.
LVEF is 60 to 65% by Gomez's method of discs.
Mild concentric LVH.
Normal diastolic function.
Normal right ventricular size and function.
Mild to moderate aortic stenosis.
Right heart pressures could not be determined.
Compared to prior from June 12, 2019, aortic valve stenosis is now mild to
moderate from mild.
Physical Exam
Vital Signs/Labs
Vital Signs
Temp Pulse Resp BP Pulse Ox
98.3 F 81 19 107/63 95
08/03/23 08:00 08/03/23 10:32 08/03/23 10:32 08/03/23 10:32 08/03/23 10:32
08/02/23 08/03/23 08/04/23
06:59 06:59 06:59
Actual Weight 91 kg 93.4 kg
08/03/23 03:14
08/03/23 03:14
PT 16.9 Sec (11.4-14.6) H 08/02/23 15:03
INR 1.40 08/02/23 15:03
APTT 25.9 Sec (23.4-35.0) 08/02/23 15:03
Magnesium 2.4 mg/dl (1.6-2.3) H 08/03/23 03:14
LAB Results
08/01/23
14:30
Troponin I < 0.012
Physical Exam
Constitutional: No acute distress and Comfortable
EENT: Anicteric and Moist mucous membranes
Cardiovascular: Rhythm & rate is regular, Pedal edema is absent and JVD pressure is normal
Respiratory: Respiratory effort normal, Lungs clear to auscul. and Wheeze Absent
GI: Soft, Distention absent, Non tender and Normal bowel sounds
Neuro/Psych: Alert, Oriented and AO x 3
Data Reviewed
-
Date of Service: August 03, 2023
Medical Decision Making: Reviewed Test Results, Independent Historian Assessment and Test Interpretation
EKG: Tracing Personally Visualized and interpreted
Echo: Tracing Personally Visualized and interpreted
X-Ray/CT/US/MRI/NUC/PET: Image Personally Visualized and interpreted
Labs: Labs Reviewed by me
Old Records: Reviewed
Critical Care Time (in minutes): 31
[2023-08-03] MEDS: LASIX 40 MG IV (11:30)
--- NOTE | 2023-08-03 11:59 | PTCARENOTE ---
Addendum entered by Murray Quiñones RN 08/03/23 12:21:
The time of this note was 7am on walking rounds report
Original Note:
Bedside walking rounds report received: patient seen on rounds oob in chair on 3l nasal canula. Titrated to room air: pulse ox sats 93 to 95% and IS encouraged to 1000ml x 10 reps with encouragement. NSR with RBBB and rates in the 70's to 80's.
Epicardial temp v wire to medtronic box to off and then insulated per order. Insulin gtt per protocol. Chest tubes x 4 (2 meds/right/left pleural) to -20cm wall suction: no air leak. See flow record for remaining assessments.
--- NOTE | 2023-08-03 12:00 | PTCARENOTE ---
No acute changes. Remains oob in chair on room air and tolerating well. Patient did stand and void 450ml clear karina yellow urine without difficulty. NSR with RBBB
--- NOTE | 2023-08-03 12:11 | W.PN.INTV ---
Today's Communication / Plan
Recommendations
Continue postoperative care
Increase activity as able
Incentive spirometry
Eventual diuresis
Continue cardiac management
Sign off
Assessment
-
Status post coronary bypass and aortic valve replacement 08/02/2023-Dr. Parr.
Postoperative mechanical ventilation
Postoperative anemia
Conditions present prior admission:
Coronary artery disease status post prior stents
Type 2 diabetes with neuropathy
Assessment and plan:
Postoperative day 1.
Extubated 08/02/2023.
Encourage incentive spirometry
Wean off oxygen
Increase activity per protocol
Analgesia. Pain relatively well-controlled at this point
Anemia noted-no evidence of acute bleeding
Follow H&H serially
Hemodynamics -stable.
Off vasopressors
Normal renal function and adequate urinary output.
PA catheter to be removed
Chest tube with no excessive drainage-no air leak.
Chest x-ray reviewed: With no pneumothorax or fluid collections.
Advance diet as tolerated
Head of the bed elevation
Glycemic control per protocol
DVT prophylaxis when safe from the surgical perspective.
Patient has been transferred to telemetry phase.
Critical care team will sign off.
Subjective Dataa
Subjective Data
Date of Service:
Date of Service: August 03, 2023
Chief Complaint: Passenger Service Representative Follow Up (Status post AVR and coronary artery bypass)
Subjective:
No overnight events
Sitting out of bed
Off vasopressors
Review of Systems
Cardiopulmonary: Dyspnea (none at rest), Cough (n), Wheezing (n) and Chest Pain (n)
GI: Abdominal Pain (n) and Nausea (n)
Neuro: Headache (n)
Objective Data
Data Reviewed
Vital Signs / I&O / Oxygen:
Vital Signs
Temp Pulse Resp BP Pulse Ox
98.5 F 73 24 109/55 95
08/03/23 11:45 08/03/23 11:45 08/03/23 11:45 08/03/23 11:45 08/03/23 11:45
Intake and Output
08/02/23 08/03/23 08/04/23
06:59 06:59 06:59
Intake Total 260 / 260 1152.8 / 1152.8 720.6 / 720.6
Output Total 1140 / 1140 205 / 205
Balance 260 / 260 12.8 / 12.8 515.6 / 515.6
SaO2 [CPAP] 100
SaO2 95
Nasal Cannula flow liters per 3
minute
Physical Exam
General: Respiratory Distress (n) and Comfortable
HEENT: Normocephalic
Cardiovascular: S1-S2
Respiratory: Clear, Non-Labored Respirations and Chest Tube (No excessive drainage or air leak.)
GI: Soft, Non Distended and Normal Bowel Sounds
Neurology: Awake, Alert, Oriented and AO x 3
Skin: Warm
Labs/Micro/Reports
Lab Data
08/03/23 03:14
08/03/23 03:14
Laboratory Results
08/02/23 08/02/23 08/02/23
07:30 15:03 16:55
PT 16.9 H
INR 1.40
APTT Cancelled 25.9
pH 7.36 7.28 L
pCO2 44 54 H
pO2 121 H 78 L
HCO3 24.9 25.4
O2 Delivery Level
08/02/23
19:51
PT
INR
APTT
pH 7.37
pCO2 42
pO2 95
HCO3 24.3
O2 Delivery Level
Microbiology
08/01/23 08:05 Nose MRSA Screen - Final
No Methicillin Resistant Staphylococcus aureus isolated.
[2023-08-03 12:35] LABS: Glucose - Point of Care 86 mg/dl (70-99)
[2023-08-03] MEDS: NOVOLOG FLEXPEN SC (12:44)
[2023-08-03 14:51] LABS: Glucose - Point of Care 151 mg/dl (70-99)
--- NOTE | 2023-08-03 15:00 | PTCARENOTE ---
No acute changes. Vitals stable. Assisted patient back to bed. Right leg/left arm amado wrap dressings removed: all incisions with intact sugical adhesive and ecchymotic around incisional and puncture sites.
[2023-08-03] MEDS: NSS IV (15:36)
[2023-08-03] MEDS: NOVOLIN R INSULIN INFUSION 100 IV (15:36)
--- NOTE | 2023-08-03 16:30 | PTCARENOTE ---
Assisted patient oob to chair. Room air. NSR with RBBB. See flow record MAR for pain management documentation.
[2023-08-03 17:15] LABS: Glucose - Point of Care 162 mg/dl (70-99)
[2023-08-03 19:00] LABS: Glucose - Point of Care 170 mg/dl (70-99)
--- NOTE | 2023-08-03 20:05 | PTCARENOTE ---
Pt received from outgoing RN, oob in a chair, NSR with RBBB, VSS, RA @ 92%, rt Ij cordis, insulin gtt x 48hrs, pain management, urinal, SCD in bed, IS Q1hr when awake.
[2023-08-03] MEDS: ZETIA 10 MG PO (21:08)
[2023-08-03 21:24] LABS: Glucose - Point of Care 110 mg/dl (70-99)
[2023-08-03 23:11] LABS: Glucose - Point of Care 124 mg/dl (70-99)
[2023-08-04] VITALS (19 sets, daily range): BP systolic 100–126; BP diastolic 53–87; BMI 29.8
--- NOTE | 2023-08-04 00:34 | PTCARENOTE ---
Pt reassessment unchanged from previous, vss, 2lnc, pain management, IS, CTx4, Rt IJ cordis, insulin gtt.
[2023-08-04 00:46] LABS: Glucose - Point of Care 94 mg/dl (70-99)
[2023-08-04] MEDS: LOPRESSOR 2.5 MG IV (01:14)
[2023-08-04 02:06] LABS: Glucose - Point of Care 110 mg/dl (70-99)
[2023-08-04 03:12] LABS: Glucose - Point of Care 73 mg/dl (70-99)
[2023-08-04 03:36] LABS: Blood Urea Nitrogen 21 mg/dl (9-20); Calcium 5.9 mg/dl (8.4-10.2); Carbon Dioxide 19 mmol/L (22-30); Chloride 116 mmol/L (98-107); Estimated Creatinine Clearance 109 ml/min; Glucose 60 mg/dl (70-99); Magnesium 1.5 mg/dl (1.6-2.3); Potassium 3.1 mmol/L (3.5-5.1); Sodium 138 mmol/L (135-145); eGFR > 60.00
--- NOTE | 2023-08-04 04:38 | PTCARENOTE ---
pt reassessment unchanged from previous, oob in a chair, increased in productive cough, RA, NSR, VSS, pain management, CT x4, insulin gtt, rt IJ cordis.
[2023-08-04 04:47] LABS: Blood Urea Nitrogen 30 mg/dl (9-20); Calcium 8.7 mg/dl (8.4-10.2); Carbon Dioxide 29 mmol/L (22-30); Chloride 102 mmol/L (98-107); Estimated Creatinine Clearance 69 ml/min; Glucose 86 mg/dl (70-99); Magnesium 2.2 mg/dl (1.6-2.3); Potassium 4.8 mmol/L (3.5-5.1); Sodium 137 mmol/L (135-145); eGFR > 60.00
[2023-08-04 05:44] LABS: Glucose - Point of Care 132 mg/dl (70-99)
[2023-08-04] MEDS: ROXICODONE 5 MG PO ×3 (05:46→21:00)
[2023-08-04] MEDS: TYLENOL 1000 MG PO ×3 (05:46→20:57)
--- NOTE | 2023-08-04 06:11 | W.PN.CT ---
Today's Communication / Plan
-
-pod #2
-atrial tachycardia to 120 noted after coughing fit on 2 separate episodes, breaks spontaneously to NSR
-CT output: 2 meds 40/170, 2 pleur 90/240 in 12/24 hrs
-continue insulin
-increase BB to 25 mg, amlodipine 2.5 mg
-current meds (ASA, Plavix, Lopressor, Norvasc, Amio, Protonix, Zetia). Intolerant of statins
-encourage IS, OOB
Assessment / Plan
-
- Unstable angina w/ MVCAD / Moderate - s/p AVR (#25 Inspiris RESILIA); CABG x 4 (KELLEN to LAD, L RA to OM1, GSV to RPDA, GSV to LPLB) by Dr. Parr on 08/02/23, pod #2
- Post-WILL: Normal LVEF w/o RWMA, well-seated AVR w/o PVL/AI, mean gradient 9mmHg
- Hx CAD with stents x2 in 2017
- HTN/HLD
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
- Nonsmoker
- Statin intolerance
- Acute postop blood loss anemia
- Acute postop atelectasis
- Acute postop hypovolemia with subsequent hypervolemia
Subjective
Procedure
- s/p AVR (#25 Inspiris RESILIA); CABG x 4 (KELLEN to LAD, L RA to OM1, GSV to RPDA, GSV to LPLB) by Dr. Parr on 08/02/23
-
Date of Service: August 04, 2023
Objective Data
-
Lab Results
08/03/23 03:14
08/04/23 03:47
PT 16.9 Sec (11.4-14.6) H 08/02/23 15:03
INR 1.40 08/02/23 15:03
APTT 25.9 Sec (23.4-35.0) 08/02/23 15:03
Vital Signs
Vital Signs
Temp Pulse Resp BP Pulse Ox
98.5 F 76 18 110/62 92
08/04/23 04:00 08/04/23 04:00 08/04/23 04:00 08/04/23 04:00 08/04/23 04:00
CT Intake/Output/Weight
08/03/23 08/03/23 08/04/23
06:59 18:59 06:59
Intake Total 932.8 / 1152.8 1119.6 / 1501.6 382 / 1501.6
Output Total 895 / 1140 1130 / 2110 980 / 2110
Balance 37.8 / 12.8 -10.4 / -608.4 -598 / -608.4
SaO2: 92
Physical Exam
-
General: Awake, Oriented and AOx3
Cardiovascular: Regular rate & rhythm, No Murmurs and No Rub
Respiratory: Clear and Equal
Sternum: Stable
Incision: Clean, Dry and Intact
Extremities: No Edema and No Erythema
Data Reviewed
-
Lab Results: Results Reviewed
Medications: Active Meds Reviewed
Chest X-Ray: Report Reviewed
ECG: Report Reviewed
[2023-08-04 06:38] LABS: Glucose - Point of Care 137 mg/dl (70-99)
--- NOTE | 2023-08-04 07:31 | W.PN.CD ---
Today's Communication / Plan
-
-Out of bed and incentive spirometry
-Beta-blockers metoprolol 25 mg once a day. Amlodipine 2.5 mg once a day.
-Lasix IV x 1.
Impression / Plan
-
Impression/Plan: 63-year-old male with history of CAD status post LAD stenting in 2017, uncontrolled type 2 diabetes, neuropathy, C5-C6 cervical discectomy and fusion who had a recent heart catheterization showing significant coronary artery
disease now status post CABG and AVR -08/02/[address] Parr�postop day #2
#CAD
-CABG x 4 (KELLEN to LAD, L RA to OM1, GSV to RPDA, GSV to LPLB) by Dr. Parr on 08/02/23,
-Plan to decline.
-Assess chest tubes.
-Beta-blockers and amlodipine with left radial artery harvesting.
-On aspirin and Plavix.
-Postop A-fib prophylaxis with amiodarone.
-Start low-dose diuresis for
#Moderate
-s/p AVR (#25 Inspiris RESILIA) -08/02/2023
-Recovering adequately.
#DM2
-Chronic, stable.
-Start SGLT2i if affordable after surgery.
-Hold metformin.
#HLD/Statin intolerance
-Chronic, stable.
-Total cholesterol = 181, LDL = 101, HDL = 29, Triglycerides = 259.
-PCSK9i/Inclisiran as an outpatient.
-Patient may benefit from icosapent ethyl 2g BID as an outpatient.
-Goal LDL < 55, Triglycerides < 150.
Subjective/Interval History:
Feeling better today. No active complaints. Out of the bed to chair.
DATA:
Cath 07/26/2023:
CONCLUSIONS
1. Right dominant circulation with a 70% ostial left main coronary artery lesion, a 90% lesion in the proximal LAD, patent stents in the proximal and mid LAD, and 80% lesion in the proximal margin of OM1, a 70% lesion in the proximal margin of the
left posterolateral branch, and 90% lesions in the mid RCA and distal RCA, proximal to the takeoff of the RPDA.
2. Moderately elevated filling pressures (LVEDP = 20 mmHg at 93.3 kg).
3. Blt-aljgxyy-gjrpgxndw diabetes mellitus.
Echo 07/26/2023:
CONCLUSIONS
Normal LV size and function with no regional wall motion abnormalities.
LVEF is 60 to 65% by Gomez's method of discs.
Mild concentric LVH.
Normal diastolic function.
Normal right ventricular size and function.
Mild to moderate aortic stenosis.
Right heart pressures could not be determined.
Compared to prior from June 12, 2019, aortic valve stenosis is now mild to
moderate from mild.
Physical Exam
Vital Signs/Labs
Vital Signs
Temp Pulse Resp BP Pulse Ox
98.5 F 76 18 110/62 92
08/04/23 04:00 08/04/23 04:00 08/04/23 04:00 08/04/23 04:00 08/04/23 06:12
08/03/23 08/04/23 08/05/23
06:59 06:59 06:59
Actual Weight 93.4 kg 94.1 kg
08/03/23 03:14
08/04/23 03:47
PT 16.9 Sec (11.4-14.6) H 08/02/23 15:03
INR 1.40 08/02/23 15:03
APTT 25.9 Sec (23.4-35.0) 08/02/23 15:03
Magnesium 2.2 mg/dl (1.6-2.3) 08/04/23 03:47
LAB Results
08/01/23
14:30
Troponin I < 0.012
Physical Exam
Constitutional: No acute distress and Comfortable
EENT: Anicteric and Moist mucous membranes
Cardiovascular: Rhythm & rate is regular, Pedal edema is absent and JVD present
Respiratory: Respiratory effort normal and Crackles Present
GI: Soft, Non tender and Normal bowel sounds
Neuro/Psych: Alert, Oriented and AO x 3
Data Reviewed
-
Date of Service: August 04, 2023
Medical Decision Making: Reviewed Test Results, Independent Historian Assessment, Test Interpretation and Review of Case with other Provider
EKG: Tracing Personally Visualized and interpreted
Labs: Labs Reviewed by me
Old Records: Reviewed
Critical Care Time (in minutes): 31
[2023-08-04 08:11] LABS: Glucose - Point of Care 119 mg/dl (70-99)
[2023-08-04] MEDS: LASIX 40 MG IV (08:34)
[2023-08-04] MEDS: MAGNESIUM OXIDE 500 MG PO ×2 (08:40→20:57)
[2023-08-04] MEDS: LIDOCAINE 4% PATCH 1 PATCH TOPICAL (08:40)
[2023-08-04] MEDS: NOVOLOG FLEXPEN 4 UNITS SC (08:40)
[2023-08-04] MEDS: LOW STRENGTH ASPIRIN 81 MG PO (08:41)
[2023-08-04] MEDS: PLAVIX 75 MG PO (08:41)
[2023-08-04] MEDS: NEURONTIN 100 MG PO ×3 (08:41→20:57)
[2023-08-04] MEDS: PROTONIX 40 MG PO (08:41)
[2023-08-04] MEDS: NORVASC 2.5 MG PO (08:42)
[2023-08-04] MEDS: PACERONE 200 MG PO ×3 (08:42→20:57)
[2023-08-04] MEDS: LOPRESSOR 25 MG PO (08:42)
[2023-08-04] MEDS: SENOKOT-S 1 TABLET PO ×2 (08:42→20:57)
[2023-08-04] MEDS: BACTROBAN 2% OINTMENT 1 APPLIC NASAL ×2 (08:43→20:55)
[2023-08-04] MEDS: FLEXERIL 5 MG PO (08:43)
[2023-08-04] MEDS: FARXIGA 10 MG PO (08:43)
[2023-08-04] MEDS: GLUCOPHAGE 1000 MG PO ×2 (08:44→18:06)
--- NOTE | 2023-08-04 09:48 | PTCARENOTE ---
Patient is out of bed in chair, vitals are stable. Flexeril given per order for muscle spasms. PA updated patient on plan of care stating that today team will get him off insulin gtt and remove chest tubes. Pt encouraged to get out of chair and walk
around unit with RN. RN provided patient education on current medications and plan of care.
[2023-08-04 10:04] LABS: Glucose - Point of Care 131 mg/dl (70-99)
--- NOTE | 2023-08-04 11:47 | PTCARENOTE ---
Chest tubes were removed by PA/RN. Patient walked half way around unit with RN, now is back in chair for lunch time. at bedside visiting. Patients vitals remain stable. Dressing applied to chest tube sites- Vaseline and gauze.
[2023-08-04 12:18] LABS: Glucose - Point of Care 109 mg/dl (70-99)
[2023-08-04] MEDS: NOVOLOG FLEXPEN SC (12:30)
[2023-08-04] MEDS: NSS 500 IV (13:15)
[2023-08-04] MEDS: GLUCOPHAGE PO (16:10)
[2023-08-04 16:18] LABS: Glucose - Point of Care 144 mg/dl (70-99)
[2023-08-04] MEDS: NOVOLOG FLEXPEN-LOW RESISTANCE SC (16:18)
--- NOTE | 2023-08-04 16:46 | PTCARENOTE ---
Patient went on another long walk around both CVICU and IVU, vitals remain stable, patient now on insulin pen ACHS and off insulin gtt. Pt came to visit and the patient and were updated on plan of care and provided education on discharge
instructions in the coming days
[2023-08-04] MEDS: LOPRESSOR 37.5 MG PO (20:56)
[2023-08-04] MEDS: ZETIA 10 MG PO (20:57)
--- NOTE | 2023-08-04 23:45 | PTCARENOTE ---
assumed care of pt from previous RN. pt A&Ox4, resting in bed at time of assessment. no c/o pain. SR on tele-monitor. POX 91% on RA. lungs diminished in b/l bases. abd s/n, round. +BS. pt voiding in bathroom. all surgical sites stable. R IJ cordis
w/ KVO. PIV intact. see worklist for complete nursing assessment, interventions, VS, and I&Os.
[2023-08-05] VITALS (13 sets, daily range): BP systolic 102–146; BP diastolic 49–109; PULSE 63; O2SAT 95–99; BMI 29.2
--- NOTE | 2023-08-05 04:30 | PTCARENOTE ---
assessment remains unchanged. VSS. Am labs collected and sent. pt ambulated entire unit. OOB to chair.
[2023-08-05 05:18] LABS: Blood Urea Nitrogen 36 mg/dl (9-20); Calcium 8.8 mg/dl (8.4-10.2); Carbon Dioxide 25 mmol/L (22-30); Chloride 101 mmol/L (98-107); Estimated Creatinine Clearance 69 ml/min; Glucose 131 mg/dl (70-99); Magnesium 2.2 mg/dl (1.6-2.3); Potassium 4.7 mmol/L (3.5-5.1); Sodium 135 mmol/L (135-145); eGFR > 60.00
--- NOTE | 2023-08-05 05:24 | W.PN.CT ---
Today's Communication / Plan
-
-pod #3
-atrial tachycardia to 120 noted after coughing fit on 2 separate episodes yesterday, none since increasing BB to 37.5 mg
-CTs out
-current meds (ASA, Plavix, Lopressor, Norvasc, Amio, Zetia). Intolerant of statins
-Continue metformin, Farxiga, insulin
-scheduled APAP, gabapentin, lidocaine patch
-encourage IS, OOB
Assessment / Plan
-
- Unstable angina w/ MVCAD / Moderate - s/p AVR (#25 Inspiris RESILIA); CABG x 4 (KELLEN to LAD, L RA to OM1, GSV to RPDA, GSV to LPLB) by Dr. Parr on 08/02/23, pod #3
- Post-WILL: Normal LVEF w/o RWMA, well-seated AVR w/o PVL/AI, mean gradient 9mmHg
- Hx CAD with stents x2 in 2017
- HTN/HLD
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
- Nonsmoker
- Statin intolerance
- Acute postop blood loss anemia
- Acute postop atelectasis
- Acute postop hypovolemia with subsequent hypervolemia
Subjective
Procedure
- s/p AVR (#25 Inspiris RESILIA); CABG x 4 (KELLEN to LAD, L RA to OM1, GSV to RPDA, GSV to LPLB) by Dr. Parr on 08/02/23
-
Date of Service: August 05, 2023
Objective Data
-
Lab Results
08/03/23 03:14
08/05/23 04:15
PT 16.9 Sec (11.4-14.6) H 08/02/23 15:03
INR 1.40 08/02/23 15:03
APTT 25.9 Sec (23.4-35.0) 08/02/23 15:03
Vital Signs
Vital Signs
Temp Pulse Resp BP Pulse Ox
98.8 F 71 18 123/64 92
08/05/23 04:00 08/05/23 04:19 08/05/23 04:00 08/05/23 04:19 08/05/23 04:19
CT Intake/Output/Weight
08/04/23 08/04/23 08/05/23
06:59 18:59 06:59
Intake Total 382 / 1501.6 1270 / 1310 40 / 1310
Output Total 980 / 2110 450 / 450
Balance -598 / -608.4 820 / 860 40 / 860
SaO2: 92
Physical Exam
-
General: Awake, Oriented and AOx3
Cardiovascular: Regular rate & rhythm and No Murmurs
Respiratory: Clear and Equal
Sternum: Stable
Incision: Clean, Dry and Dressing Intact
Extremities: No Edema and No Erythema
Data Reviewed
-
Lab Results: Results Reviewed
Medications: Active Meds Reviewed
Chest X-Ray: Report Reviewed
ECG: Report Reviewed
[2023-08-05] MEDS: TYLENOL 1000 MG PO ×2 (06:45→22:24)
--- NOTE | 2023-08-05 07:00 | PTCARENOTE ---
Bedside walking rounds report received. Patient seen on rounds oob in chair on room air. NSR with RBBB. IS to [id number]. Patient assisted back to bed. Right IJ cordis sutures/right IJ cordis catheter dc per order. See flowrecord for remaining
assessments
[2023-08-05] MEDS: NOVOLOG FLEXPEN-LOW RESISTANCE 1 UNITS SC ×3 (07:58→17:53)
[2023-08-05] MEDS: BACTROBAN 2% OINTMENT 1 APPLIC NASAL ×2 (07:59→19:54)
[2023-08-05 08:05] LABS: Glucose - Point of Care 176 mg/dl (70-99)
--- NOTE | 2023-08-05 08:50 | PN.DE.MGMTRT ---
Insulin Management
- -
08/05/2023: Diabetes Management F/U:
63 year old male with PMH that includes: CAD, Neuropathy, T2DM. Admitted on 07/31 with increasing chest pain due to Unstable angina, noted for MVCAD/Moderate . Now POD # 3 s/p AVR and CABG x 4. A1C on 07/25 9.5%, Cr 0.9, eGFR >60. Was taking
Metformin 1000 mg BID prior to admission.
States he was dx with T2DM with an A1C of 13% 7 yrs ago. He had been taking Metformin 1000 mg BID at the time but was stopped by his PCP when his A1C came down to 6.5% and he had lost 70lbs. Says he thought he was doing well until recently when he
had routine blood work that showed that his A1C was back up to 10.5% and he was started on Metformin again.
Pt is wake, alert, oriented, sitting up in chair, granddaughter- Luly at bedside, both able to discuss diabetes management.
Pt was transitioned off glycemic protocol insulin infusion yesterday to oral regimen. Pt states that he has not had much to eat due to poor appetite.
Glucose has been stable and in range, premeal 109 to 144 yesterday, Fasting 131 this AM.
Will make no changes to current regimen: Metformin 1000 mg BID and Farxiga 10mg daily.
Discussed current A1C, average blood sugars and diabetes management with insulin, pt states he would like to hold off on insulin and try oral meds prior to adding insulin. Pt was made aware that he may need at least long acting insulin if his blood
sugars start trending up when he is eating more with improved diet.
Pt reports that he has 2 working meters (OneTouch and Contour) with enough supplies at home
Will consult Dietitian for dietary counseling.
Diabetes History
- -
Type of Diabetes: 2
Pre-Admission Diabetes Regimen
08/05/23
04:15
Creatinine 1.1
Insulin Pump Settings
IP Diabetes Regimen
08/04/23 08/04/2308/03/24
10:02 12:17 16:17
Glucose
POC Glucose 131 H 109 H 144 H
08/05/23 08/05/23
04:15 07:56
Glucose 131 H
POC Glucose 176 H
Patient Education
[2023-08-05] MEDS: LOW STRENGTH ASPIRIN 81 MG PO (08:57)
[2023-08-05] MEDS: NEURONTIN 100 MG PO ×3 (08:57→22:24)
[2023-08-05] MEDS: PROTONIX 40 MG PO (08:57)
[2023-08-05] MEDS: LOPRESSOR 37.5 MG PO ×2 (08:58→19:53)
[2023-08-05] MEDS: GLUCOPHAGE 1000 MG PO ×2 (08:58→17:55)
[2023-08-05] MEDS: PACERONE 200 MG PO ×3 (08:59→22:25)
[2023-08-05] MEDS: NORVASC 2.5 MG PO (08:59)
[2023-08-05] MEDS: LIDOCAINE 4% PATCH 1 PATCH TOPICAL (08:59)
[2023-08-05] MEDS: MAGNESIUM OXIDE 500 MG PO ×2 (08:59→19:54)
[2023-08-05] MEDS: FARXIGA 10 MG PO (08:59)
[2023-08-05] MEDS: SENOKOT-S 1 TABLET PO ×2 (08:59→19:54)
[2023-08-05 09:11] LABS: INR 1.15; PT 14.6 Sec (11.4-14.6)
[2023-08-05] MEDS: PLAVIX 75 MG PO (09:23)
--- NOTE | 2023-08-05 12:00 | PTCARENOTE ---
No acute changes. Ambulated entire loop IVU/CVICU 450ft on room air. NSR with RBBB
[2023-08-05 12:50] LABS: Glucose - Point of Care 158 mg/dl (70-99)
--- NOTE | 2023-08-05 13:59 | W.PN.CD ---
Today's Communication / Plan
-
stable postop
ambulating
in sinus
continue post op care per CT surgery
Impression / Plan
-
Impression/Plan: 63-year-old male with history of CAD status post LAD stenting in 2017, uncontrolled type 2 diabetes, neuropathy, C5-C6 cervical discectomy and fusion who had a recent heart catheterization showing significant coronary artery
disease now status post CABG and AVR -08/02/[address] Parr�postop day #2
#CAD
-CABG x 4 (KELLEN to LAD, L RA to OM1, GSV to RPDA, GSV to LPLB) by Dr. Parr on 08/02/23,
- stable and in sinus . ambulating
- post op care per CT surgery
#Moderate
-s/p AVR (#25 Inspiris RESILIA) -08/02/2023
#DM2
-Chronic, stable.
-Start SGLT2i if affordable after surgery.
-Hold metformin.
#HLD/Statin intolerance
-PCSK9 as an outpatient.
Subjective/Interval History:
Feeling better today. No active complaints. Out of the bed to chair.
DATA:
Cath 07/26/2023:
CONCLUSIONS
1. Right dominant circulation with a 70% ostial left main coronary artery lesion, a 90% lesion in the proximal LAD, patent stents in the proximal and mid LAD, and 80% lesion in the proximal margin of OM1, a 70% lesion in the proximal margin of the
left posterolateral branch, and 90% lesions in the mid RCA and distal RCA, proximal to the takeoff of the RPDA.
2. Moderately elevated filling pressures (LVEDP = 20 mmHg at 93.3 kg).
3. Zzr-efjdkpi-pusqgchst diabetes mellitus.
Echo 07/26/2023:
CONCLUSIONS
Normal LV size and function with no regional wall motion abnormalities.
LVEF is 60 to 65% by Gomez's method of discs.
Mild concentric LVH.
Normal diastolic function.
Normal right ventricular size and function.
Mild to moderate aortic stenosis.
Right heart pressures could not be determined.
Compared to prior from June 12, 2019, aortic valve stenosis is now mild to
moderate from mild.
Physical Exam
Vital Signs/Labs
Vital Signs
Temp Pulse Resp BP Pulse Ox
97.9 F 64 18 104/59 95
08/05/23 11:52 08/05/23 12:00 08/05/23 11:52 08/05/23 11:52 08/05/23 11:52
08/04/23 08/05/23 08/06/23
06:59 06:59 06:59
Actual Weight 94.1 kg 92.3 kg
08/03/23 03:14
08/05/23 04:15
PT 14.6 Sec (11.4-14.6) 08/05/23 08:54
INR 1.15 08/05/23 08:54
APTT 25.9 Sec (23.4-35.0) 08/02/23 15:03
Magnesium 2.2 mg/dl (1.6-2.3) 08/05/23 04:15
Physical Exam
Constitutional: No acute distress
Cardiovascular: Rhythm & rate is regular
Respiratory: Respiratory effort normal and Other (faint wheez left base)
GI: Non tender and Normal bowel sounds
Neuro/Psych: Alert
Other: Skin
Data Reviewed
-
Date of Service: August 05, 2023
Medical Decision Making: Reviewed Test Results
EKG: Report Reviewed by me
Labs: Labs Reviewed by me
--- NOTE | 2023-08-05 16:00 | PTCARENOTE ---
No acute changes. NSR with RBBB.
[2023-08-05] MEDS: TYLENOL PO (16:03)
[2023-08-05] MEDS: NSS IV (16:04)
--- NOTE | 2023-08-05 16:50 | CM ---
dc plan remains home when medically stable and f/u visit from the ct transitional care nurse
[2023-08-05 17:56] LABS: Glucose - Point of Care 152 mg/dl (70-99)
[2023-08-05] MEDS: ROXICODONE 5 MG PO (19:53)
--- NOTE | 2023-08-05 20:27 | PTCARENOTE ---
assumed care of patient @ 1900. received pt sitting in chair, AOX3. Pt ambulated to bathroom and then back to bed with steady gait. VSS on RA. NSR with RBB on tele. V wire insulated. Lungs clear, diminished on room air. productive cough with white
sputum. +pulses, -E. No BM yet. encouraged PO intake. voiding spontaneously. L radial site SECURITY CLERK CDI, CT and aquacel CDI, R SVG site SECURITY CLERK CDI. PIV patent. pt resting in bed comfortably with call herrera within reach .
[2023-08-05] MEDS: ZETIA 10 MG PO (22:24)
[2023-08-05 22:29] LABS: Glucose - Point of Care 166 mg/dl (70-99)
--- NOTE | 2023-08-05 23:03 | PTCARENOTE ---
no change in assessment. pt resting comfortably
[2023-08-06 02:54] VITALS: BP 127/66
--- NOTE | 2023-08-06 03:00 | PTCARENOTE ---
labs drawn and sent , pt resting comfortably , no change in assessment .
[2023-08-06 03:30] LABS: Hematocrit 28.7 % (39.0-52.0); Hemoglobin 9.7 g/dL (13.0-18.0); Mean Corp Hgb Conc. 33.8 g/dL (33.0-37.0); Mean Corpuscular Hgb 32.4 pg (27.0-31.0); Mean Platelet Volume 10.3 fL (7.4-10.4); Platelet Count 157 10^3/uL (130-400); Red Blood Cell Count 2.99 10^6/uL (4.70-6.10); Red Cell Dist. Width 12.2 % (11.5-14.5); White Blood Cell Count 9.2 10^3/uL (4.8-10.8)
[2023-08-06 03:46] LABS: Blood Urea Nitrogen 37 mg/dl (9-20); Calcium 8.9 mg/dl (8.4-10.2); Carbon Dioxide 26 mmol/L (22-30); Chloride 100 mmol/L (98-107); Estimated Creatinine Clearance 63 ml/min; Glucose 128 mg/dl (70-99); Magnesium 2.5 mg/dl (1.6-2.3); Potassium 4.4 mmol/L (3.5-5.1); Sodium 135 mmol/L (135-145); eGFR > 60.00
[2023-08-06 04:50] VITALS: BMI 28.9
--- NOTE | 2023-08-06 04:58 | W.PN.CT ---
Today's Communication / Plan
-
Plan:
-No major issues overnight. Hemodynamically and neurologically intact
-Rhythm is NSR @ 70 bpm. Tolerating increased of Lopressor to 37.5 mg po BiD
-Norvasc for radial graft
-Cont. current meds (ASA, Plavix, Norvasc, Lopressor, Zetia, MFM, Farxiga)
-Diabetes education/management following
-F/U 2-view cxr
-D/C temporary v-wire
-Encourage use of IS
-OOB into chair/Ambulate
-D/C home
Assessment / Plan
-
- Unstable angina w/ MVCAD / Moderate - s/p AVR (#25 Inspiris RESILIA); CABG x 4 (KELLEN to LAD, L RA to OM1, GSV to RPDA, GSV to LPLB) by Dr. Parr on 08/02/23, pod #4
- Post-WILL: Normal LVEF w/o RWMA, well-seated AVR w/o PVL/AI, mean gradient 9mmHg
- Hx CAD with stents x2 in 2017
- HTN/HLD
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
- Nonsmoker
- Statin intolerance
- Acute postop blood loss anemia
- Acute postop atelectasis
- Acute postop hypovolemia with subsequent hypervolemia
Discussed patient care with: Cardiology, Nursing, Respiratory Therapy, Pharmacy and Care Team
Subjective
Procedure
- s/p AVR (#25 Inspiris RESILIA); CABG x 4 (KELLEN to LAD, L RA to OM1, GSV to RPDA, GSV to LPLB) by Dr. Parr on 08/02/23
-
Date of Service: August 06, 2023
Pt c/o mild incisional pain, otherwise feels well. Ambulating halls without difficulty. Wants to go home
Objective Data
-
Lab Results
08/06/23 03:09
08/06/23 03:09
PT 14.6 Sec (11.4-14.6) 08/05/23 08:54
INR 1.15 08/05/23 08:54
APTT 25.9 Sec (23.4-35.0) 08/02/23 15:03
Vital Signs
Vital Signs
Temp Pulse Resp BP Pulse Ox
97.6 F 73 16 127/66 94
08/06/23 03:00 08/06/23 04:00 08/06/23 03:00 08/06/23 02:54 08/06/23 03:00
CT Intake/Output/Weight
08/05/23 08/05/23 08/06/23
06:59 18:59 06:59
Intake Total 40 / 1310 1095 / 1575 480 / 1575
Output Total 0 / 0
Balance 40 / 860 1095 / 1575 480 / 1575
SaO2: 94 (RA)
Physical Exam
-
General: Awake, Oriented and AOx3
Cardiovascular: Regular rate & rhythm, No Murmurs, No Rub and No Gallop
Respiratory: Decreased Breath Sounds
Sternum: Stable
Incision: Clean, Dry, Intact and Dressing Intact
Extremities: No Edema
Data Reviewed
-
Lab Results: Results Reviewed
Medications: Active Meds Reviewed
Chest X-Ray: Report Reviewed and Image Reviewed
ECG: Report Reviewed and Image Reviewed
[2023-08-06] MEDS: TYLENOL 1000 MG PO (06:12)
[2023-08-06 07:25] VITALS: BP 122/61
[2023-08-06 07:30] LABS: Glucose - Point of Care 152 mg/dl (70-99)
[2023-08-06] MEDS: NOVOLOG FLEXPEN-LOW RESISTANCE 1 UNITS SC (07:55)
[2023-08-06] MEDS: GLUCOPHAGE 1000 MG PO (07:55)
[2023-08-06] MEDS: LOPRESSOR 37.5 MG PO (07:56)
[2023-08-06] MEDS: PACERONE 200 MG PO (07:56)
[2023-08-06] MEDS: PROTONIX 40 MG PO (07:56)
[2023-08-06] MEDS: MAGNESIUM OXIDE 500 MG PO (07:56)
[2023-08-06] MEDS: NORVASC 2.5 MG PO (07:57)
[2023-08-06] MEDS: LIDOCAINE 4% PATCH TOPICAL (07:57)
[2023-08-06] MEDS: PLAVIX 75 MG PO (07:57)
[2023-08-06] MEDS: NEURONTIN 100 MG PO (07:57)
[2023-08-06] MEDS: FARXIGA 10 MG PO (07:57)
[2023-08-06] MEDS: LOW STRENGTH ASPIRIN 81 MG PO (07:57)
[2023-08-06] MEDS: BACTROBAN 2% OINTMENT 1 APPLIC NASAL (07:57)
[2023-08-06] MEDS: SENOKOT-S PO (07:58)
--- NOTE | 2023-08-06 08:15 | PTCARENOTE ---
Patient received from night time babysitter resting oob in chair, AAO X 3, states pain controlled at this time. NSR via cm, SaO2 @ 97% on RA. Epicardial V-wire insulated to chest wall. All procedural sites stable. Patient updated to plan of care for the day,
including pending d/c home, in agreement. See work list for full assessment and interventions performed.
--- NOTE | 2023-08-06 08:17 | PN.DE.MGMTRT ---
Insulin Management
- -
08/06/2023: Diabetes Management Follow up:
Patient admitted 07/31 with increasing chest pain due to Unstable angina, noted for MVCAD/Moderate . PMH includes: CAD, Neuropathy, T2DM.
POD # 5 s/p AVR and CABG x 4. A1C on 07/25 9.5%, Cr 0.9, eGFR >60. Was taking Metformin 1000 mg BID prior to admission.
States he was dx with T2DM with an A1C of 13% 7 yrs ago. He had been taking Metformin 1000 mg BID at the time but was stopped by his PCP when his A1C came down to 6.5% and he had lost 70lbs. Says he thought he was doing well until recently when he
had routine blood work that showed that his A1C was back up to 10.5% and he was started on Metformin again.
Patient is awake alert and oriented able to discuss diabetes regimen. For discharge today.
Glucose has been stable and in range, premeal 152 to 176 yesterday, Fasting 128 venous this AM.
Will make no changes to current regimen: Metformin 1000 mg BID and Farxiga 10mg daily.
It has been discussed with patient he may require long acting insulin. To test glucose and report to primary doctor.
Pt reports that he has 2 working meters (OneTouch and Contour) with enough supplies at home.
Discussed with nurse.
Diabetes History
- -
Type of Diabetes: 2
Pre-Admission Diabetes Regimen
08/06/23
03:09
Creatinine 1.2
Insulin Pump Settings
IP Diabetes Regimen
08/05/23 08/05/23 08/05/23
12:44 17:52 22:28
Glucose
POC Glucose 158 H 152 H 166 H
08/06/23 08/06/23
03:09 07:26
Glucose 128 H
POC Glucose 152 H
Patient Education
--- NOTE | 2023-08-06 08:37 | W.DCSUMMARY ---
Discharge Summary
Discharge Data
Date of Admission: 08/01/23
Date of Discharge: 08/06/23
-
Pending Results: No
Hospital Course
Primary care physician: Etienne Ibarra
Outpatient die maker apprentice: Chad Jose
Inpatient consultants: [facility] cardiology
Procedures:
1. Aortic valve replacement and coronary artery bypass grafting
Primary Diagnosis:
1. Severe aortic stenosis
Secondary Diagnoses:
1. Coronary artery disease with stents x 2 in 2017
2. Type 2 diabetes with neuropathy (A1c 9.5)
3. Hyperlipidemia
4. Acute surgical blood loss anemia�expected
5. Moderate right internal carotid artery stenosis (50-70%)
HPI: 63-year-old male developed chest discomfort during preadmission testing on 08/01/2023 and was directly admitted to the hospital with surgery expedited for 08/02/2023.
Hospital course: On 08/02/2023, patient underwent AVR (#25 Inspiris RESILIA) and CABG x 4 (KELLEN to LAD, L RA to OM1, GSV to RPDA, GSV to LPLB) with Dr. Naveen Parr. Intraoperative WILL reported EF of 70%. Patient did not require any
intraoperative blood products and patient returned to CVICU on Levophed, Cardene, Precedex, and insulin. Patient was extubated 8 PM on the day of surgery. Aspirin and Plavix were initiated. Mediastinal and pleural chest tubes were removed on
postoperative day #2. Temporary epicardial ventricular wires were clipped at skin level. Patient had no postoperative atrial fibrillation and amiodarone was discontinued on discharge. Norvasc was initiated for radial graft patency. Metformin was
increased to twice daily dosing and Farxiga initiated by diabetes management team. Zetia was continued for statin intolerance with consideration of a PCSK9 initiation as outpatient. Patient ambulated with cardiac rehab and was deemed stable for
discharge to home.
Home medication changes:
Norvasc for radial patency
Metformin increased to twice daily
Toprol converted to metoprolol tartrate 37.5 mg twice daily
Discharge Plan
-
Patient Disposition: Home (Routine Discharge)
Discharge Diagnosis/Procedures: Coronary artery disease, moderate aortic stenosis/aortic valve replacement and CABG
Condition: Good
Diet: Low Cholesterol and Low Sodium
Activity: No strenuous activity
Driving Restrictions: Not until seen by your Dr
Bathing Restrictions: OK to Shower
Other Services: Cardiac Rehab
Specialty Instructions: Weigh Daily- Call MD for wt gain/loss 3 lbs overnight/5 lbs in 1 week
Referrals:
CT Transitional Care Nurse [Outside]
(
The Cardiothoracic Transitional Care Nurse will call you to set up a visit in 1-2 days.)
[facility] [Outside] (Please call [facility] Cardiac [facility] to schedule first orientation appt following hospital discharge. )
Etienne Ibarra MD [Family Provider] - (Please make an appointment in four to six weeks. )
Gely Hernandez CRNP [Specified Professional Personl] - 09/18/23 9:20 am (Your appointment with Gely Hernandez on August 09, 2023 at 8:40 a.m. has been cancelled. )
Naveen Parr MD [Active] - 09/03/23 2:00 pm
Prescriptions:
New
amlodipine 2.5 mg Tablet
2.5 mg PO DAILY Qty: 30 1RF
clopidogrel 75 mg Tablet
75 mg PO DAILY Qty: 30 1RF
ezetimibe 10 mg Tablet
10 mg PO HS Qty: 30 1RF
acetaminophen 325 mg Tablet
650 mg PO Q4HPRN PRN (Reason: mild pain,headache,temp >101F ) Qty: 0 0RF
pantoprazole 40 mg Tablet,Delayed Release (Dr/Ec)
40 mg PO DAILY Qty: 30 1RF
metformin 1,000 mg Tablet
1,000 mg PO BID@0800,1700 Qty: 60 1RF
gabapentin 100 mg Capsule
100 mg PO TID Qty: 30 0RF
oxycodone 5 mg Tablet
5 mg PO Q4HPRN PRN (Reason: severe pain) Qty: 20 0RF
dapagliflozin propanediol 10 mg Tablet
10 mg PO DAILY Qty: 30 1RF
metoprolol tartrate 25 mg Tablet
37.5 mg PO Q12 Qty: 60 1RF
Continued
aspirin 81 MG tablet,delayed release (DR/EC)
81 mg PO DAILY
multivitamin Tablet
1 tab PO DAILY
Discontinued
nitroglycerin 0.4 mg tablet, sublingual
0.4 mg sublingual [id number] PRN (Reason: chest pain) Qty: 25 5RF
metformin 500 mg Tablet
1,000 mg PO QPM
metoprolol succinate 25 mg tablet extended release 24 hr
25 mg PO 1400
Discharge Orders:
Discharge Patient (As Directed); Ordered 08/06/23
Ordered By: Татьяна Pradhan
Care Plan Goals
Care Plan Goals:
Problem: Readiness for enhanced knowledge related to diagnosis and treatment plan
Goal: Understand your diagnosis and treatment plan needs, including medications if applicable.
Instructions: Know your diagnosis, underlying causes and treatment plan options, including medications if applicable. Consult with your health care team to learn about your diagnosis and treatment plan, including medications if applicable.
Discharge Date and Time
Print Language: HEBREW
[2023-08-06 10:35] VITALS: BP 115/67
[2023-08-06 10:42] VITALS: BP 125/79
[2023-08-06 11:21] VITALS: BP 125/69
--- NOTE | 2023-08-06 11:47 | PTCARENOTE ---
Patient set up to shower, completed independently. PIV removed. Discharge instructions thoroughly reviewed w/patient and spouse, all questions answered. Patient and all belongings transported to waiting vehicle for d/c home.
[2023-08-06 13:34] VITALS: BP 115/67; BP 125/75; PULSE 67; O2SAT 98; O2SAT 99
== END 2023-08-06 12:19 | disposition home or self-care (01) | DRG 220 ==
LOC: CVICU 10:52
PROVIDERS: Anesthesiology; Clinical Nurse Specialist Acute Care; Nurse Practitioner; Physician Assistant Medical; ADMITTING PHYSICIAN Thoracic Surgery (Cardiothoracic Vascular Surgery); CONSULT PHYSICIAN Internal Medicine Critical Care Medicine; FAMILY PHYSICIAN Family Medicine; OTHER PHYSICIAN Internal Medicine Cardiovascular Disease
PROC: 02RF08Z Replacement of Aortic Valve with Zooplastic Tissue, Open Approach (ICD-10-PCS; 2023-08-02)
PROC: 5A1221Z Performance of Cardiac Output, Continuous (ICD-10-PCS; 2023-08-02)
PROC: 03BC4ZZ Excision of Left Radial Artery, Percutaneous Endoscopic Approach (ICD-10-PCS; 2023-08-02)
PROC: 021109W Bypass Coronary Artery, Two Arteries from Aorta with Autologous Venous Tissue, Open Approach (ICD-10-PCS; 2023-08-02)
PROC: 02100AW Bypass Coronary Artery, One Artery from Aorta with Autologous Arterial Tissue, Open Approach (ICD-10-PCS; 2023-08-02)
PROC: 06BP4ZZ Excision of Right Saphenous Vein, Percutaneous Endoscopic Approach (ICD-10-PCS; 2023-08-02)
PROC: B24BZZ4 Ultrasonography of Heart with Aorta, Transesophageal (ICD-10-PCS; 2023-08-02)
PROC: 02100ZC Bypass Coronary Artery, One Artery from Thoracic Artery, Open Approach (ICD-10-PCS; 2023-08-02)
DX: I25.110 Atherosclerotic heart disease of native coronary artery with unstable angina pectoris (principal); D62 Acute posthemorrhagic anemia; J98.11 Atelectasis; I35.0 Nonrheumatic aortic (valve) stenosis; E11.40 Type 2 diabetes mellitus with diabetic neuropathy, unspecified; I65.21 Occlusion and stenosis of right carotid artery; E78.5 Hyperlipidemia, unspecified; E86.1 Hypovolemia; E87.70 Fluid overload, unspecified; Z79.82 Long term (current) use of aspirin; Z79.84 Long term (current) use of oral hypoglycemic drugs; Z79.899 Other long term (current) drug therapy; Z95.5 Presence of coronary angioplasty implant and graft; Z98.1 Arthrodesis status
CPT/HCPCS: 88305; 88311; 36415; 70355; 71045; 71046; 71250; 80048; 80053; 81003; 82248; 82330; 82565; 82805; 82810; 82947; 82962; 83735; 84132; 84302; 84484; 84520; 85014; 85018; 85025; 85027; 85049; 85610; 85730; 86850; 86900; 86901; 86920; 87070; 93005; 93312; 93320; 93325; 94002; P9045

== ENCOUNTER → 2024-04-03 08:27 | Outpatient (REF) | payer MEDICARE, BC, SELFPAY | LOC: RAD 08:27 | PROVIDERS: ATTENDING PHYSICIAN Nurse Practitioner Family; FAMILY PHYSICIAN Family Medicine | DX: J18.9 Pneumonia, unspecified organism (principal) | CPT/HCPCS: 71046 ==

== ENCOUNTER → 2024-06-25 07:04 | Outpatient (REF) | payer MEDICARE, BC, SELFPAY | LOC: RCS 07:04 | PROVIDERS: ATTENDING PHYSICIAN Internal Medicine Cardiovascular Disease; FAMILY PHYSICIAN Family Medicine | DX: I25.10 Atherosclerotic heart disease of native coronary artery without angina pectoris (principal); Z95.1 Presence of aortocoronary bypass graft; Z95.2 Presence of prosthetic heart valve; K04.7 Periapical abscess without sinus | CPT/HCPCS: 93306 ==